=== PATIENT | female | born 1985 | race Hispanic/Latino ===

== ENCOUNTER 2018-09-24 09:28 | Emergency (ER) | payer SELFPAY ==
--- NOTE | 2018-09-24 12:58 | OBHP ---
Datetime: 09/24/2018 11:19 IP Adm Impression: , intrauterine IP Admit Plan: Observation/Evaluation; Discharge home Admit Comment, IP Provider: 32-year-old at 24.4 weeks twin (dated on Tri U/S, diamniotic, unknown chorionic as per patient) presents for lower abdominal pain 2 hours prior to pres entation. Pain is bilateral RLQ and LLQ and also lower back, made worse by standing and walking, reli eved with sitting/rest. Her first two pregnancies (in [place]) resulted in C/S @ 40 weeks. Next appoint ment with primary OBGYN is Oct 03 (8 days from presentation). Denies any problems with pregn dilcia thus far, patient of Dr Wallace in [place]. OBGYN: Dr Wallace, [place] PMH: denies OBHx: 2x C/S 2011, 2013 - no complications. 1st and only U/S for this @ 6weeks, next Oct 03 (8 days from presentation) Meds: denies Social: denies Allergies: NKA Family Hx: denies Labs: wnl as per patient, no records available ROS: all other systems reviewed and negative unless otherwise noted in HPI PE: comfortably lying in bed, in no acute distress CV: RRR Resp: no respiratory distress Abd: IUP, mild tenderness to palpation LLQ, LRQ Extremities: no edema A+P: Addendum by Dr. Gonzalez: I have evaluated the patient independently and I agree with the above Pelvic Type - PN: Not Done Extremities - PN: Normal Abdomen - PN: Normal Back - PN: Normal Breast - PN: Not Done Lungs - PN: Normal Heart - PN: Not Done Thyroid - PN: Not Done Neurologic - PN: Normal HEENT - PN: Normal General - PN: Normal EGA AdmitDate IP: 24.5 Vital Signs Provider: Reviewed; Within Normal Limits IP Chief Complaint: Maternal discomfort Genitourinary Exam: Not Done DTRs - PN: Not Done
--- NOTE | 2018-09-24 13:05 | OBDCSUM ---
Datetime: 09/24/2018 10:50 Discharged to, Provider: Home Follow up at, Provider: [facility]- Disch Instr Activity: Normal activity Disch Instr Diet: Regular Discharge Instructions, Provider: Routine instructions given Discharge Time: 09/24/2018 11:00 Follow up in weeks, Provider: as scheduled 10/03/2018 Disch Referrals: None Contraception discussed, Prov: Yes Discharge Diagnosis Prov Other: pelvic pain affecting
[2018-09-24 15:49] VITALS: BP 116/83; PULSE 104; RESP 18; TEMP 98.5; O2SAT 99
== END 2018-09-24 11:00 | disposition home or self-care (01) ==
LOC: H.EROB2 09:28
DX: O26.92 Pregnancy related conditions, unspecified, second trimester (principal); R10.2 Pelvic and perineal pain; O30.032 Twin pregnancy, monochorionic/diamniotic, second trimester; Z3A.24 24 weeks gestation of pregnancy

== ENCOUNTER 2018-12-09 11:22 | Emergency (ER) | payer MEDICAID, SELFPAY ==
[2018-12-09 12:12] VITALS: BMI 40.3
[2018-12-09] MEDS ORDERED: Lactated Ringer's 1,000 ML IV SCH ×2 (12:15)
[2018-12-09 13:03] LABS: BASO % 0.4 % (0.0-2.0); EOS # 0.1 K/uL (0.0-0.7); EOS % 0.8 % (0.0-4.0); HEMOGLOBIN 9.2 g/dL (12.0-16.0); LYMPH # 2.1 K/uL (1.0-4.3); LYMPH % 26.3 % (20.0-40.0); MEAN CELL VOLUME 66.2 fl (81.0-99.0); MEAN CORPUSCULAR HEMOGLOBIN 20.8 pg (27.0-31.0); MEAN CORPUSCULAR HGB CONC 31.4 g/dL (33.0-37.0); MONO # 0.6 K/uL (0.0-0.8); MONO % 7.9 % (0.0-10.0); NEUT # 5.1 K/uL (1.8-7.0); NEUT % 64.6 % (50.0-75.0); NRBC % 0.2 % (0.0-0.0); RBC 4.42 Mil/uL (3.80-5.20); RED CELL DISTRIBUTION WIDTH 19.5 % (11.5-14.5); WHITE BLOOD COUNT 7.9 K/uL (4.8-10.8)
[2018-12-09 13:12] LABS: ALBUMIN 3.5 g/dL (3.5-5.0); ALT/SGPT 19 U/L (9-52); AST/SGOT 19 U/L (14-36); BLOOD UREA NITROGEN 8 mg/dl (7-17); CALCIUM 9.2 mg/dL (8.4-10.2); GFR NON-AFRICAN AMERICAN > 60; URIC ACID 5.1 mg/Dl (2.2-7.5)
[2018-12-09 13:13] LABS: SQUAMOUS EPITHIAL 3 /hpf (0-5); URINE AMORPHOUS SEDIMENT RARE /ul (<OCC); URINE BILIRUBIN NEGATIVE (NEGATIVE); URINE BLOOD NEGATIVE (NEGATIVE); URINE CLARITY SLIGHTY-CLOUDY (Clear); URINE COLOR YELLOW (YELLOW); URINE GLUCOSE (UA) NEG (NEGATIVE); URINE LEUKOCYTE ESTERASE TRACE Leu/uL (Negative); URINE PROTEIN NEGATIVE (NEGATIVE); URINE UROBILINOGEN 0.2-1.0 mg/dL (0.2-1.0)
--- NOTE | 2018-12-09 16:47 | US ---
Date of service: 12/09/2018 PROCEDURE: ultrasound HISTORY: BPP/ Growth DC/DA twins COMPARISON: None TECHNIQUE: Standard protocol for this study/examination. FINDINGS: FETUS A: BREECH presentation. FUNDAL placenta. No evidence of abruption or previa Gestational age derived from LMP 35 WEEKS 4 DAYS. NORA 01/09/2019 Gestational age derived from the following biometric parameters 35 WEEKS 4 DAYS. NORA 01/09/2019 Biparietal diameter 8.82 cm Head circumference 31.41 cm Abdominal circumference 30.33 cm Femur length 7.18 cm Estimated weight 2621 g Calculated cardiac rate 131 beats per min. Biophysical profile Biophysical profile score 8/8 Based on the followin. breathing movements: 2/2 2. Gross body movement: 2/2 3. tone: 2/2 4. Qualitative amniotic fluid index: 2/2 FETUS B Cephalic presentation. Anterior placenta. No evidence of abruption or previa Gestational age derived from LMP 35 weeks 4 days. NORA 01/09/2019. Gestational age derived from the following biometric parameters 35 weeks 3 days. NORA 01/10/2019. Biparietal diameter 8.99 cm Head circumference 32.15 cm Abdominal circumference 29.62 cm Femur length 6.92 cm Estimated weight 2492 g Calculated cardiac rate 133 beats per min. Biophysical profile Biophysical profile score 8/8 Based on the followin. breathing movements: 2/2 2. Gross body movement: 2/2 3. tone: 2/2 4. Qualitative amniotic fluid index: 2/2 Closed cervix measuring 5.89 cm IMPRESSION: 1. Twin, live intrauterine gestations. Gestational concordance documented for fetus a and fetus B.. 2. Biophysical profile score baby A: 03/13 3. Biophysical profile score baby B: 03/13
--- NOTE | 2018-12-09 17:02 | OBHP ---
Datetime: 12/09/2018 12:33 IP Adm Impression: , intrauterine IP Admit Plan: Observation/Evaluation Admit Comment, IP Provider: 33 y/o , 35.4 wks, twin with NORA 01/09/19 and schedulaed CS date of 12/26/18 presents to [facility] complaining of abdominal pain and back pain started yesterday 4PM. P ain and CTx are intermittent every 15 mins, have increased in intensity since 4 am today. with assoic iated back pain, vomiting x 1 this monring, intermittent headache, and dizziness this morning. Denies LOF, VB, urinary complains, CP, SOB. Endorses good FM. Denies any H/O HTN in this . Prior M FM visit on 12/05/18. OBGYN: In [place], [place] PMH: Denies PSHx: 2 x CS, Appendectomy and Hemorrhoidectomy OBHx: G1: C/S 2011, Decels at 40 wks G2: C/S 2013 - no complications. Last US 12/05/18, Next US on 12/10/18 Meds: PNVs Social: denies Allergies: NKA Family Hx: denies Labs: wnl as per patient, no records available ROS: all other systems reviewed and negative unless otherwise noted in HPI Vitals: BP 137/78, WNL otherwise PE: Mild distress CV: RRR Resp: no respiratory distress Abd: mild tenderness to palpation lower abdomen, No CVA Extremities:+1 edema B/L SVE: Cervix close, (done by Dr. Gonzalez) Neuro: AAO x 3, CN 2-12 intact A_P: 33 y/o , 35.4 wks, twin with NORA 01/09/19 and schedulaed CS date of 12/26/18 prese nts to [facility] complaining of abdominal pain and back pain. - FHR: Twin A, Reactive, Category I, 120, Moderate variability, No decels Twin B, Reactive, Category I, 120, Moderate variability, No decels - [place]: No CTx - Preeclampsia labs orderd: CBC, CMP, UA, LDH, Uric Acid - LR 1L bolus followed by LR 1L @ 125 ml/hr - HgB 9.2, CMP unremarkable, Glucose 76, 3 hr OGTT results reviewed were unremarkable, LDH, uric a judie and UA unremarkable. - BPP with growth done showed BPP 8/8 for Twin A and Twin B. - Tylenol 650 mg once for back pain - PTL precautions reviewed with patient, advised patient to bed rest, maintain hydration, and retu rn if vaginal bleeding, LOF, CTx or decreased movements. Patient and verbalized underst anding. - Patient advised to take Tylenol PRN for back pain and F/U with provider. - Continue weekly BPP and F/U with MFM, however 12/10/18 US with BPP not required since patient had US with BPP and growth done today 12/09/18. Case seen and discussed with Dr. Carlos Ross MD, PGY1 Addendum by Dr. Gonzalez: I have evaluated the patient independently and I agree with the above FHR - Baseline A Provider: 120 Contraction Comments Provider: None Comments, ACOG Physical Exam: Vitals: BP 137/78, WNL otherwise PE: Mild distress CV: RRR Resp: no respiratory distress Abd: mild tenderness to palpation lower abdomen Back: Lumbar paraspinal tenderness + B/L, No CVA tenderness Extremities:+1 edema B/L Neuro: AAO x 3, CN 2-12 intact SVE: Done by Dr. Gonzalez, cervix close. EGA AdmitDate IP: 35.4 Vital Signs Provider: Reviewed; Within Normal Limits IP Chief Complaint: Uterine contractions; Maternal discomfort NICHD Variability Prov Fetus A: Moderate 6-25bpm NICHD Accel Fetus A IP Provider: 15X15 FHR Category Provider Fetus A: Category I NICHD Decel Fetus A IP Provider: None Dilatation, Provider: 0
--- NOTE | 2018-12-09 17:05 | OBDCSUM ---
Datetime: 12/09/2018 16:23 Discharged to, Provider: Home Follow up at, Provider: [facility] Disch Instr Activity: Normal activity Disch Instr Diet: Regular Discharge Diagnosis, Provider: False Labor - Undelivered Discharge Time: 12/09/2018 16:23 Follow up in weeks, Provider: 12/16/2018 Disch Referrals: None
[2018-12-09 21:37] VITALS: BP 102/47; PULSE 81; RESP 18; TEMP 97.8; O2SAT 100
== END 2018-12-09 16:42 | disposition home or self-care (01) ==
LOC: H.EROB2 11:22
DX: O26.93 Pregnancy related conditions, unspecified, third trimester (principal); R10.2 Pelvic and perineal pain; M54.9 Dorsalgia, unspecified; Z3A.35 35 weeks gestation of pregnancy; O21.0 Mild hyperemesis gravidarum; R42 Dizziness and giddiness; R51 Headache
CPT/HCPCS: 76815; 80053; 81003; 83615; 84550; 85025; 96360; 99284; J7120

== ENCOUNTER 2018-12-17 12:16 | Emergency (ER) | payer MEDICAID ==
[2018-12-17 21:27] VITALS: BP 128/82; PULSE 103; RESP 18; TEMP 98.4
--- NOTE | 2018-12-18 08:34 | OBDCSUM ---
Datetime: 12/17/2018 13:07 Discharge Diagnosis, Provider: False Labor - Undelivered
--- NOTE | 2018-12-18 08:35 | OBHP ---
Datetime: 12/17/2018 12:37 IP Adm Impression: , intrauterine ; No Active Labor; Intact Membranes IP Admit Plan: Observation/Evaluation; Discharge home Admit Comment, IP Provider: 33 y/o , 36.5 wks, twin with NORA 01/09/19 and schedulaed CS date of 12/26/18 sent to ED by [facility] due to recurrent decels today during NST. Patient had US and NST to day which showed recurrent variables in Twin A. Patient reports CTx lasting 40 sec started earlier th is morning, LOF with small amount of clear watery liquid. Denies VB, urinary complains, CP, SOB. Repo rts decreased FM in twin a since this morning. Denies any H/O HTN in this . care: [facility]. Last [facility] visit today. Last labs 12/09/18: HgB 9.2, CMP unremarkable, Glucose 76, 3 hr OGTT results reviewed were unremarka ble, LDH, uric acid and UA unremarkable. PMH: Denies PSHx: 2 x CS, Appendectomy and Hemorrhoidectomy OBHx: G1: C/S 2011, Decels at 40 wks, Oligohydroamnios G2: C/S 2013 - no complications. Last US 12/17/18 Meds: PNVs Social: denies Allergies: NKA Family Hx: denies Labs: wnl as per patient, no records available ROS: all other systems reviewed and negative unless otherwise noted in HPI Vitals: VSS PE: NAD CV: RRR, S1S2 present Resp: no respiratory distress Abd: Gravid, NT, ND SSE: No active vaginal bleeding, Pooling and ferning negative SVE: Close, thick and high Extremities:Trace edema B/L Neuro: AAO x 3 A/P: 33 y/o , 36.5 wks, twin with NORA 01/09/19 and schedulaed CS date of 12/26/18 sent to ED by [facility] due to recurrent decels today during NST. Patient inOBED for evaluation and R/O RO M. - NST reactive, for Twin A and Twin B - US report reviewed from today which shows BPP 10/10 for both twin A and twin B - Ferning and Pooling test negative - No CTx on toco - Cervix close, high - Will schedule patient for C section on 12/24/18 - Follow up with [facility] tomorrow for check up - PTL precautions reviewed with patient, advised patient to bed rest, maintain hydration, and retu rn if vaginal bleeding, LOF, CTx or decreased movements. Patient verbalized understanding. Case seen and discussed with Dr. Sarah Ross MD, PGY1 OB Hospitalist note. With PGY1, I saw and examined this patinet. She had reactive NST for both baby A and B. +FM. BPP 8/8 for both and SMITH adeq as per MFM report. SSE: closed FERN neg - labor i nstructions. Pt originally scheduled for Thurs...offered to schedule her earlier at 38w. MAHNDO Pelvic Type - PN: Adequate Extremities - PN: Normal Abdomen - PN: Normal Back - PN: Normal Breast - PN: Not Done Lungs - PN: Normal Heart - PN: Normal Thyroid - PN: Not Done Neurologic - PN: Not Done HEENT - PN: Normal General - PN: Normal FHR - Baseline A Provider: 120-130s Membranes, Provider: Intact Contraction Comments Provider: absent Comments, ACOG Physical Exam: PE: NAD CV: RRR, S1S2 present Resp: no respiratory distress Abd: Gravid, NT, ND SSE: No active vaginal bleeding, Pooling and ferning negative SVE: Close, thick and high Extremities:Trace edema B/L Neuro: AAO x 3 Pool Provider: Negative Ferning Provider: Negative EGA AdmitDate IP: 36.5 Vital Signs Provider: Reviewed; Within Normal Limits IP Chief Complaint: evaluation NICHD Variability Prov Fetus A: Moderate 6-25bpm NICHD Accel Fetus A IP Provider: 15X15 FHR Category Provider Fetus A: Category I NICHD Decel Fetus A IP Provider: None Dilatation, Provider: 0 Genitourinary Exam: Normal DTRs - PN: Not Done
== END 2018-12-17 13:15 | disposition home or self-care (01) ==
LOC: H.EROB2 12:16
DX: O26.93 Pregnancy related conditions, unspecified, third trimester (principal); R10.2 Pelvic and perineal pain; O09.93 Supervision of high risk pregnancy, unspecified, third trimester; Z3A.36 36 weeks gestation of pregnancy

== ENCOUNTER 2018-12-22 01:17 | Emergency (ER) | payer MEDICAID ==
[2018-12-22 01:38] VITALS: BMI 41.3
[2018-12-22] MEDS ORDERED: Lactated Ringer's 1,000 ML IV SCH (02:30)
[2018-12-22 02:54] LABS: BASO % 0.4 % (0.0-2.0); EOS # 0.1 K/uL (0.0-0.7); EOS % 1.4 % (0.0-4.0); HEMOGLOBIN 7.9 g/dL (12.0-16.0); LYMPH # 2.2 K/uL (1.0-4.3); LYMPH % 30.2 % (20.0-40.0); MEAN CELL VOLUME 65.2 fl (81.0-99.0); MEAN CORPUSCULAR HEMOGLOBIN 20.4 pg (27.0-31.0); MEAN CORPUSCULAR HGB CONC 31.3 g/dL (33.0-37.0); MEAN PLATELET VOLUME 8.9 fl (7.2-11.7); MONO # 0.7 K/uL (0.0-0.8); NEUT # 4.3 K/uL (1.8-7.0); NRBC % 0.3 % (0.0-0.0); RBC 3.88 Mil/uL (3.80-5.20); WHITE BLOOD COUNT 7.4 K/uL (4.8-10.8)
[2018-12-22 03:17] LABS: ALBUMIN 3.4 g/dL (3.5-5.0); ALT/SGPT 15 U/L (9-52); AST/SGOT 31 U/L (14-36); BLOOD UREA NITROGEN 8 mg/dl (7-17); CALCIUM 8.6 mg/dL (8.4-10.2); GFR NON-AFRICAN AMERICAN > 60
[2018-12-22 03:35] LABS: PROTHROMBIN TIME 11.2 Seconds (9.8-13.1)
[2018-12-22 03:37] LABS: PARTIAL THROMBOPLASTIN TIME 25.4 Seconds (25.6-37.1)
[2018-12-22 06:02] LABS: SQUAMOUS EPITHIAL 3 /hpf (0-5); URINE BACTERIA RARE (<OCC); URINE BILIRUBIN NEGATIVE (NEGATIVE); URINE BLOOD NEGATIVE (NEGATIVE); URINE CLARITY SLIGHTY-CLOUDY (Clear); URINE COLOR YELLOW (YELLOW); URINE GLUCOSE (UA) NEG (NEGATIVE); URINE LEUKOCYTE ESTERASE NEG Leu/uL (Negative); URINE PROTEIN 30 mg/dL (NEGATIVE); URINE UROBILINOGEN 0.2-1.0 mg/dL (0.2-1.0)
--- NOTE | 2018-12-22 11:29 | OBHP ---
Datetime: 12/22/2018 10:46 IP Adm Impression: Term, intrauterine ; No Active Labor; Intact Membranes IP Admit Plan: Observation/Evaluation; Discharge home Admit Comment, IP Provider: 33-year-old at 37 weeks and 3 days gestational age with twin gestation p resents complaining of cramping and contractions. Patient denies any vaginal bleeding or leakage of fluids. Patient reports good movement. Patient scheduled for repeat in 2 days. Oth erwise, patient without complaints. Past medical history denies Past surgical history x2 Medications vitamins No known drug allergies Social history denies tobacco, drugs, alcohol Assessment: 37 weeks and 3 days twin gestation, no evidence of labor at this time, all labs within normal limi ts, heart tracing category 1 2. Plan: Patient was observed at OB ED. Plan to discharge patient home with labor precautions. Patient sc heduled for on 12/24/2018. Patient given labor precautions and preoperative instructions. All patient questions answered. Pelvic Type - PN: Adequate Extremities - PN: Normal Abdomen - PN: Normal Back - PN: Normal Breast - PN: Normal Lungs - PN: Normal Heart - PN: Normal Thyroid - PN: Normal Neurologic - PN: Normal HEENT - PN: Normal General - PN: Normal FHR - Baseline A Provider: 120s-130s (x2) Contraction Comments Provider: none EGA AdmitDate IP: 37.3 Vital Signs Provider: Reviewed; Within Normal Limits IP Chief Complaint: Uterine contractions; Maternal discomfort NICHD Variability Prov Fetus A: Moderate 6-25bpm NICHD Accel Fetus A IP Provider: 15X15 FHR Category Provider Fetus A: Category I NICHD Decel Fetus A IP Provider: None Dilatation, Provider: 0 Effacement, Provider: 0 Station, Provider: -4 Genitourinary Exam: Normal DTRs - PN: Normal
[2018-12-22 15:27] VITALS: BP 139/88; PULSE 96; RESP 20; TEMP 98; O2SAT 100
== END 2018-12-22 08:40 | disposition home or self-care (01) ==
LOC: H.EROB2 01:17
DX: O26.93 Pregnancy related conditions, unspecified, third trimester (principal); R10.2 Pelvic and perineal pain; O30.003 Twin pregnancy, unspecified number of placenta and unspecified number of amniotic sacs, third trimester; Z3A.37 37 weeks gestation of pregnancy
CPT/HCPCS: 80053; 81003; 83615; 85025; 85384; 85610; 85730; 86850; 86900; 99283; J7120

== ENCOUNTER 2018-12-24 05:51 | Inpatient (IN) | payer MEDICAID ==
[2018-12-24] MEDS: Lactated Ringer's 1,000 ML IV ONE ×2 (06:30→07:40)
[2018-12-24 06:50] VITALS: BMI 44.1
[2018-12-24] MEDS ORDERED: ceFAZolin 2 GM in Sodium Chloride 0.9% 100 ML IVPB ONE (06:50)
[2018-12-24] MEDS ORDERED: Oxytocin 30 UNIT in NS 500 ml 30 UNITS/500 ML BAG IV ONE (06:53)
[2018-12-24] MEDS ORDERED: OXYTOCIN/0.9 % NS 20 UNIT/1,000 ML BAG IV SCH (07:00)
[2018-12-24 07:46] LABS: BASO # 0.1 K/uL (0.0-0.2); BASO % 0.7 % (0.0-2.0); EOS # 0.1 K/uL (0.0-0.7); EOS % 1.2 % (0.0-4.0); HEMOGLOBIN 8.6 g/dL (12.0-16.0); LYMPH # 2.4 K/uL (1.0-4.3); LYMPH % 30.1 % (20.0-40.0); MEAN CELL VOLUME 65.5 fl (81.0-99.0); MEAN CORPUSCULAR HGB CONC 30.6 g/dL (33.0-37.0); MONO # 0.6 K/uL (0.0-0.8); MONO % 8.2 % (0.0-10.0); NEUT # 4.7 K/uL (1.8-7.0); NEUT % 59.8 % (50.0-75.0); NRBC % 0.2 % (0.0-0.0); RBC 4.28 Mil/uL (3.80-5.20); RED CELL DISTRIBUTION WIDTH 20.1 % (11.5-14.5); WHITE BLOOD COUNT 7.8 K/uL (4.8-10.8)
--- NOTE | 2018-12-24 10:15 | OBADHP ---
Datetime: 12/24/2018 06:43 Admit Comment, IP Provider: 33 y/o , 37.5 wks, twin with NORA 01/09/19 presents for sched uled C section. Patient reports irregular CTx, reports good movements. Denies VB, LOF urinary c omplains, CP, SOB. Denies any H/O HTN in this . Patient is getting weekly NST and BPP with l ast US on 12/17/18. care: [facility], [place]. PMH: Denies PSHx: 2 x CS, Appendectomy and Hemorrhoidectomy OBHx: G1: C/S 2011, Decels at 40 wks, Oligohydroamnios G2: C/S 2013 - no complications. Last US 12/17/18 Meds: PNVs Social: denies Allergies: NKA Family Hx: denies Labs: wnl as per patient, no records available ROS: all other systems reviewed and negative unless otherwise noted in HPI Vitals: VSS PE: NAD CV: RRR, S1S2 present Resp: no respiratory distress Abd: Gravid, NT, ND Extremities:Trace edema B/L Neuro: AAO x 3 A/P: 33 y/o , 37.5 wks, twin with NORA 01/09/19 admitted for scheduled - NST reactive, for Twin A and Twin B - GBS Unknown, HIV NR, RPR NR, Rubella immune - No CTx on toco - Cervix close, high - CBC, T_S - LR 1L 999 and 125 ml/hr - ANesthesia consult - Ancef 2 gm IVPB - NPO since midnight Case seen and discussed with Dr. Carlos Ross MD, PGY1 OB hospitalist on-call. After discussion with patient about conditoin, procedure (C/S and BTL), r isks/complications, she stated that she understood. Her questoins answered. Informed consents obtai palak. Hb 8 - will obtain type and cross/additional IV line Pelvic Type - PN: Not Done Extremities - PN: Normal Abdomen - PN: Normal Back - PN: Normal Breast - PN: Not Done Lungs - PN: Normal Heart - PN: Normal Thyroid - PN: Not Done Neurologic - PN: Normal HEENT - PN: Normal General - PN: Normal FHR - Baseline A Provider: 120 IP Hx Assessment: The History has been Reviewed and is Current Vital Signs Provider: Reviewed IP Chief Complaint: Scheduled Section NICHD Variability Prov Fetus A: Moderate 6-25bpm NICHD Accel Fetus A IP Provider: 15X15 FHR Category Provider Fetus A: Category I NICHD Decel Fetus A IP Provider: None Genitourinary Exam: Normal DTRs - PN: Not Done EGA AdmitDate IP: 37.5 IP Adm Impression: Term, intrauterine ; No Active Labor; Intact Membranes IP Admit Plan: Initiate Section protocol Datetime: 12/22/2018 10:46 Contraction Comments Provider: none Dilatation, Provider: 0 Effacement, Provider: 0 Station, Provider: -4 Datetime: 12/17/2018 12:37 Membranes, Provider: Intact Comments, ACOG Physical Exam: PE: NAD CV: RRR, S1S2 present Resp: no respiratory distress Abd: Gravid, NT, ND SSE: No active vaginal bleeding, Pooling and ferning negative SVE: Close, thick and high Extremities:Trace edema B/L Neuro: AAO x 3 Pool Provider: Negative Ferning Provider: Negative
[2018-12-24] MEDS ORDERED: Absorbable Gelatin Sponge Size 12-7 ONE (13:15)
[2018-12-24] MEDS ORDERED: Lidocaine 2% PF (10 ml) Amp ONE (13:39)
[2018-12-24] MEDS ORDERED: Lidocaine 2% Jelly (5 ml) TOP ONE (13:39)
[2018-12-24] MEDS ORDERED: Oxycodone/Acetaminophen 5/325 mg Tab PO PRN ×4 (13:51→16:52)
[2018-12-24] MEDS ORDERED: Bupivacaine 0.25% 300 ML in Sodium Chloride 0.9% 300 ML IS ONE (14:01)
[2018-12-24] MEDS ORDERED: Simethicone 80 mg Chewtab PO SCH (16:00)
[2018-12-24] MEDS: Simethicone 80 mg Chewtab PO SCH (22:15)
[2018-12-25 05:43] LABS: HEMOGLOBIN 8.6 g/dL (12.0-16.0); MEAN CELL VOLUME 66.2 fl (81.0-99.0); MEAN CORPUSCULAR HEMOGLOBIN 19.8 pg (27.0-31.0); MEAN CORPUSCULAR HGB CONC 29.9 g/dL (33.0-37.0); RBC 4.34 Mil/uL (3.80-5.20); RED CELL DISTRIBUTION WIDTH 20.1 % (11.5-14.5); WHITE BLOOD COUNT 11.3 K/uL (4.8-10.8)
[2018-12-25] MEDS: Simethicone 80 mg Chewtab PO SCH ×4 (06:11→22:08)
--- NOTE | 2018-12-25 07:15 | OBDS ---
DELIVERY PERSONNEL Delivery Doctor: Kermit Smith DO Scrub Nurse: Margarita Flores OBT It Application Support Analyst: Jaspal Peterson RN / Deborah Tan RN Anesthesiologist: Dr. Cardenas Resident: Rahul Whitehead MATERNAL INFORMATION Delivery Anesthesia: Spinal Medications in Delivery: Ancef 2g; Lactated Ringers; pitocin Estimated Blood Loss (ml): 800 Placenta Cultured: No Maternal Complications: None Provider Comments: Pre Op Dx: IUP 38w / twin preg / previous C/S x 2 / [facility] (desiring voluntar y sterilization) Post op DX: same Procedure: Repeat LTCS via previous surgical scar Surgeon: Dr Smith Assts: Dr Kristian Gomes and Dr Natalie Cabrera PGY1 Anesth: Dr Cardenas Anest: spinal Findings: - Thin lower segment/Clear AF in both sacs - delivery of baby A breech / baby B cephalic - both babies cried spontaneously/[id number] - Placenta delivered intact manually - Ovaries and tubes WNL - Bilateral fibriectomy performed -Gel foam placed in lower uterine segment - EBL 800cc - She remained stable during procedure - all equipment sponges and needles accounted for LABOR SUMMARY EDC: 01/09/2019 00:00 No. Babies in Womb: 2 Attempted: No Labor Anesthesia: Intrathecal LABOR INFORMATION Reason for Induction: Not Applicable Oxytocin: N/A Group B Beta Strep: Done, Result Unknown Antibiotics # of Doses: 0 Antibiotics Time of Last Dose: n/a (Annotations: Data stored by CPN on behalf of user) Steroids Given: None Reason Steroids Not Administered: Not Applicable MEMBRANES Membranes Rupture Method: Artificial (Annotations: Data stored by CPN on behalf of user) Rupture of Membranes: 12/24/2018 12:54 Length of Rupture (hrs): 0.00 Amniotic Fluid Color: Clear Amniotic Fluid Amount: Moderate Amniotic Fluid Odor: None STAGES OF LABOR Stage 3 hrs: 0 Stage 3 min: 4 CSECTION DELIVERY Primary Indication: Repeat Elective CSection Urgency: Elective CSection Incidence: Repeat Labor: No Labor Elective: Elective CSection Incision: Lower Uterine Transverse Other Sterilization Procedure: Bilateral fibriectomy Uterine Closure: Double-layer closure BABY A INFORMATION Delivery Date/Time: 12/24/2018 12:54 Method of Delivery: Born in Route : No : N/A Forceps: N/A Vacuum Extraction: N/A Shoulder Dystocia : No SHOULDER DYSTOCIA BABY A Delivery Date/Time: 12/24/2018 12:54 PRESENTATION/POSITION BABY A Presentation: Breech Cephalic Presentation: N/A Breech Presentation: Sourav PLACENTA INFORMATION BABY A Placenta Delivery Time : 12/24/2018 12:58 Placenta Method of Delivery: Manual Removal Placenta Status: Delivered SCORES BABY A Heart Rate 1 min: >100 bpm Resp Effort 1 min: Good Cry Reflex Irritability 1 min: Cough or Sneeze or Pulls Away Muscle Tone 1 min: Active Motion Color 1 min: Body Twin Brooks, Extremities Blue Resuscitation Effort 1 min: Tactile Stimulation SCORE 1 MIN: 9 Heart Rate 5 min: >100 bpm Resp Effort 5 min: Good Cry Reflex Irritability 5 min: Cough or Sneeze or Pulls Away Muscle Tone 5 min: Active Motion Color 5 min: Body Twin [place], Extremities Blue Resuscitation Effort 5 min: Tactile Stimulation SCORE 5 MIN: 9 INFANT INFORMATION BABY A Gestational Age at Delivery: 37.5 Gestational Status: Term Infant Outcome : Liveborn Infant Condition : Stable Infant Sex: Male IDENTIFICATION/MEDS BABY A ID Band Number: [id number] ID Band Location: Left Leg; Left Arm WEIGHT/LENGTH BABY A Infant Birthweight (gms): 3050 Infant Weight (lb): 6 Infant Weight (oz): 12 CORD INFORMATION BABY A No. Cord Vessels: 3 Nuchal Cord : N/A Cord Blood Taken: Yes Infant Suction: Mouth; Nose ASSESSMENT BABY A Complications: None Physical Findings at Delivery: Within Normal Limits Infant Respirations: Appears Normal Maintenance Aide/ALS Called : No Infant Care By: Deborah Reyna RN Transferred To: [facility] BABY B INFORMATION Delivery Date/Time: 12/24/2018 12:55 Method of Delivery : Born in Route : No : N/A Forceps : N/A Vacuum Extraction: N/A Shoulder Dystocia : No SHOULDER DYSTOCIA BABY B Delivery Date/Time: 12/24/2018 12:55 PRESENTATION/POSITION BABY B Presentation : Cephalic Cephalic Position : Vertex Breech Position: N/A ROM/PLACENTA INFO BABY B Rupture of Membranes: 12/24/2018 12:54 Length of Rupture (hrs): 0.02 Placenta Delivery Time : 12/24/2018 12:58 Placenta Method of Delivery: Manual Removal Placental Status : Delivered SCORES BABY B Heart Rate 1 min: >100 bpm Resp Effort 1 min: Slow, Irregular Reflex Irritability 1 min: Cough or Sneeze or Pulls Away Muscle Tone 1 min: Active Motion Color 1 min: Body [place], Extremities Blue Resuscitation Effort 1 min: Tactile Stimulation SCORE 1 MIN: 8 Heart Rate 5 min: >100 bpm Resp Effort 5 min: Good Cry Reflex Irritability 5 min: Cough or Sneeze or Pulls Away Muscle Tone 5 min: Active Motion Color 5 min: Body Twin [place], Extremities Blue Resuscitation Effort 5 min: Tactile Stimulation SCORE 5 MIN: 9 INFANT INFORMATION BABY B Gestational Age at Delivery: 37.5 Gestational Status : Term Infant Outcome : Liveborn Condition : Stable Infant Sex : Female IDENTIFICATION/MEDS BABY B ID Band Number : [id number] ID Band Location : Left Leg; Left Arm WEIGHT/LENGTH BABY B Infant Birthweight (gms): 3010 Weight (lb) : 6 Weight (oz): 10 CORD INFORMATION BABY B No. Cord Vessels : 3 Nuchal Cord : N/A Cord Blood Taken : Yes Suction : Mouth; Nose ASSESSMENT BABY B Infant Complications : None Physical Findings at Delivery: Within Normal Limits Infant Respirations : Appears Normal Maintenance Aide/ALS Called : No Care By : Deborah Reyna RN Transfer To: Nursery
--- NOTE | 2018-12-25 07:15 | OBDS ---
DELIVERY PERSONNEL Delivery Doctor: Kermit Smith DO Scrub Nurse: Margarita Flores [employer] Credit Card Collection Clerk: Jaspal Peterson RN / Deborah Tan RN Anesthesiologist: Dr. Cardenas Resident: Rahul Whitehead MATERNAL INFORMATION Delivery Anesthesia: Spinal Medications in Delivery: Ancef 2g; Lactated Ringers; pitocin Estimated Blood Loss (ml): 800 Placenta Cultured: No Maternal Complications: None Provider Comments: Pre Op Dx: IUP 38w / twin preg / previous C/S x 2 / Multparity (desiring voluntar y sterilization) Post op DX: same Procedure: Repeat LTCS via previous surgical scar Surgeon: Dr Smith Assts: Dr Kristian Gomes and Dr Natalie Cabrera PGY1 Anesth: Dr Cardenas Anest: spinal Findings: - Thin lower segment/Clear AF in both sacs - delivery of baby A breech / baby B cephalic - both babies cried spontaneously/[id number] - Placenta delivered intact manually - Ovaries and tubes WNL - Bilateral fibriectomy performed -Gel foam placed in lower uterine segment - EBL 800cc - She remained stable during procedure - all equipment sponges and needles accounted for LABOR SUMMARY EDC: 01/09/2019 00:00 EDC: 01/09/2019 00:00 EDC: 01/09/2019 00:00 No. Babies in Womb: 2 Attempted: No Labor Anesthesia: Intrathecal LABOR INFORMATION Reason for Induction: Not Applicable Oxytocin: N/A Group B Beta Strep: Done, Result Unknown Antibiotics # of Doses: 0 Antibiotics Time of Last Dose: n/a (Annotations: Data stored by CPN on behalf of user) Steroids Given: None Reason Steroids Not Administered: Not Applicable MEMBRANES Membranes Rupture Method: Artificial (Annotations: Data stored by N on behalf of user) Rupture of Membranes: 12/24/2018 12:54 Length of Rupture (hrs): 0.00 Amniotic Fluid Color: Clear Amniotic Fluid Amount: Moderate Amniotic Fluid Odor: None STAGES OF LABOR Stage 3 hrs: 0 Stage 3 min: 4 CSECTION DELIVERY Primary Indication: Repeat Elective CSection Urgency: Elective CSection Incidence: Repeat Labor: No Labor Elective: Elective CSection Incision: Lower Uterine Transverse Other Sterilization Procedure: Bilateral fibriectomy Uterine Closure: Double-layer closure BABY A INFORMATION Infant Delivery Date/Time: 12/24/2018 12:54 Method of Delivery: Born in Route : No : N/A Forceps: N/A Vacuum Extraction: N/A Shoulder Dystocia : No SHOULDER DYSTOCIA BABY A Delivery Date/Time: 12/24/2018 12:54 PRESENTATION/POSITION BABY A Presentation: Breech Cephalic Presentation: N/A Breech Presentation: Sourav PLACENTA INFORMATION BABY A Placenta Delivery Time : 12/24/2018 12:58 Placenta Method of Delivery: Manual Removal Placenta Status: Delivered SCORES BABY A Heart Rate 1 min: >100 bpm Resp Effort 1 min: Good Cry Reflex Irritability 1 min: Cough or Sneeze or Pulls Away Muscle Tone 1 min: Active Motion Color 1 min: Body Laird, Extremities Blue Resuscitation Effort 1 min: Tactile Stimulation SCORE 1 MIN: 9 Heart Rate 5 min: >100 bpm Resp Effort 5 min: Good Cry Reflex Irritability 5 min: Cough or Sneeze or Pulls Away Muscle Tone 5 min: Active Motion Color 5 min: Body Laird, Extremities Blue Resuscitation Effort 5 min: Tactile Stimulation SCORE 5 MIN: 9 INFANT INFORMATION BABY A Gestational Age at Delivery: 37.5 Gestational Status: Term Infant Outcome : Liveborn Condition : Stable Sex: Male IDENTIFICATION/MEDS BABY A ID Band Number: [id number] ID Band Location: Left Leg; Left Arm WEIGHT/LENGTH BABY A Birthweight (gms): 3050 Weight (lb): 6 Weight (oz): 12 CORD INFORMATION BABY A No. Cord Vessels: 3 Nuchal Cord : N/A Cord Blood Taken: Yes Suction: Mouth; Nose ASSESSMENT BABY A Complications: None Physical Findings at Delivery: Within Normal Limits Respirations: Appears Normal Slot Shift Supervisor/ALS Called : No Infant Care By: Deborah Reyna RN Transferred To: Nursery BABY B INFORMATION Delivery Date/Time: 12/24/2018 12:55 Method of Delivery : Born in Route : No : N/A Forceps : N/A Vacuum Extraction: N/A Shoulder Dystocia : No SHOULDER DYSTOCIA BABY B Infant Delivery Date/Time: 12/24/2018 12:55 PRESENTATION/POSITION BABY B Presentation : Cephalic Cephalic Position : Vertex Breech Position: N/A ROM/PLACENTA INFO BABY B Rupture of Membranes: 12/24/2018 12:54 Length of Rupture (hrs): 0.02 Placenta Delivery Time : 12/24/2018 12:58 Placenta Method of Delivery: Manual Removal Placental Status : Delivered SCORES BABY B Heart Rate 1 min: >100 bpm Resp Effort 1 min: Slow, Irregular Reflex Irritability 1 min: Cough or Sneeze or Pulls Away Muscle Tone 1 min: Active Motion Color 1 min: Body Laird, Extremities Blue Resuscitation Effort 1 min: Tactile Stimulation SCORE 1 MIN: 8 Heart Rate 5 min: >100 bpm Resp Effort 5 min: Good Cry Reflex Irritability 5 min: Cough or Sneeze or Pulls Away Muscle Tone 5 min: Active Motion Color 5 min: Body Laird, Extremities Blue Resuscitation Effort 5 min: Tactile Stimulation SCORE 5 MIN: 9 INFANT INFORMATION BABY B Gestational Age at Delivery: 37.5 Gestational Status : Term Outcome : Liveborn Condition : Stable Infant Sex : Female IDENTIFICATION/MEDS BABY B ID Band Number : [id number] ID Band Location : Left Leg; Left Arm WEIGHT/LENGTH BABY B Infant Birthweight (gms): 3010 Infant Weight (lb) : 6 Weight (oz): 10 CORD INFORMATION BABY B No. Cord Vessels : 3 Nuchal Cord : N/A Cord Blood Taken : Yes Infant Suction : Mouth; Nose ASSESSMENT BABY B Infant Complications : None Physical Findings at Delivery: Within Normal Limits Infant Respirations : Appears Normal Slot Shift Supervisor/ALS Called : No Infant Care By : Deborah Reyna RN Transfer To: [facility]
[2018-12-25] MEDS: Multivitamin With Minerals Tab PO SCH (08:51)
[2018-12-25] MEDS ORDERED: Multivitamin With Minerals Tab PO SCH (09:00)
--- NOTE | 2018-12-25 09:36 | OBPPN ---
Datetime: 12/25/2018 06:16 PP Pain Prov: Within normal limits PP Nausea Prov: Denies PP Flatus Prov: Yes PP BM Prov: No PP Breasts Prov: Not Done PP Heart Prov: Normal PP Lungs Prov: Normal PP Abdomen/Uterus Prov: Normal PP Lochia Prov: Normal PP Vulva/Perineum Prov: Not Done PP CVA Tenderness Prov: Normal PP Extremities Prov: Normal PP C/S Incision Prov: Normal PP Progress Prov: Normal PP Impression Prov: Normal progression PP Plan Prov: Continue present management; consult PP Progress Note Prov: POD 1 S: 33-year-old , S/P Repeat C-sec on 12/24/18, on POD 1. No overnight events. Pain tolerate d with Ibuprofen. Had 8 episodes of vomiting yestrday for which patient received ZOfran. Deneis N/V n ow. Was NPO yestrday except for ice chips. WIll advance diet to liquid diet this morning. Denies feve r, chills, CP, SOB, headache, dizziness. Not Ambulating yet. Frost to be removed at 6 am today. Formu la feeding. Passing flatus, No BM yet. Dressing present. VS: stable GEN: NAD Cardio: S1S2, no murmurs Lungs: clear breath sounds b/l, no wheezing Abdomen: BS+, appropriate tenderness to palpation. Incision not visualized, dressing intact, clean and dry. Uterus is firm and at the level of the umbilicus. Appropriate tenderness. On Q ball present . EXT: Trace edema, calves non-tender NEURO/PSYCH: AAOx3, no grossly focal deficits, preserved affect and mood. Assessment/Plan: 33-year-old , S/P Repeat C-sec on 12/24/18, on POD 1, Pt remains afebrile, tolerating pain with medication. -Percocet 5/325mg q4 and Motrin 600mg po q6 for pain as per pain scale -Incentive spirometry Q1hr - Zofran 4mg Q6hr PRN for nausea/vomiting -Senakot 17.2mg po QHS -Mylicon 80mg PO Q6H -Encourage and ambulation Case discussed with attending -Matthew Ross PGY1 The patient was seen with the resident I agree with the note Vital Signs Provider PP: Reviewed; Within Normal Limits
[2018-12-26] MEDS: Simethicone 80 mg Chewtab PO SCH ×4 (05:02→21:54)
[2018-12-26] MEDS: Multivitamin With Minerals Tab PO SCH (08:44)
--- NOTE | 2018-12-26 08:52 | OP ---
PROCEDURE DATE: 12/24/2018 PREOPERATIVE DIAGNOSES: Intrauterine at 38 weeks' gestation, twin , previous section x2, multiparity, desiring voluntary sterilization. POSTOPERATIVE DIAGNOSES: Intrauterine at 38 weeks' gestation, twin , previous section x2, multiparity, desiring voluntary sterilization. PROCEDURES: Repeat low-transverse section via previous surgical scar. SURGEON: Jorge Smith DO ASSOCIATE JUVENILE COURT JUDGE: Felix Gomes MD SECOND ASSOCIATE JUVENILE COURT JUDGE: ALEX Gutierrez-1. ANESTHESIOLOGISTS: Dr. Cardenas. ANESTHESIA: Spinal. OPERATIVE FINDINGS: 1. Uterus had a very thin low uterine segment. Clear amniotic fluid was noted in both gestational sacs. 2. Delivery of baby A from a breech presentation, baby B was delivered cephalically. 3. Both babies cried spontaneously. score 9 and 9 given at 1 and 9 minutes respectively. 4. Placenta delivered intact manually. 5. Ovaries and tubes appeared to be within normal limits grossly. Bilateral fimbriectomy was performed without complications. Gelfoam was placed on the lower uterine segment. ESTIMATED BLOOD LOSS: 800 mL. She remained hemodynamically stable throughout the procedure. All equipments, sponges, and needles accounted for. DESCRIPTION OF PROCEDURE: The patient was brought to the operating room. After successful spinal anesthesia by Dr. Cardenas, she was placed in a supine position. Compression boots were placed on both lower extremities. Catheter was placed in the bladder and draining clear urine. She was draped and prepped in the usual sterile manner. Once adequate anesthesia was obtained, an incision was made using a scalpel through a previous surgical scar. This incision was then taken down to underlying fascia using electrocautery. Fascia was nicked in the midline and extended bilaterally using electrocautery. The inferior aspect of the fascia was grasped using 2 Emily clamps, tented up, and the rectus muscle was both bluntly and sharply dissected. The same was done with the superior aspect of the fascia. In the midline, superiorly the rectus muscle noted to be . Able to identify the peritoneum. This was entered bluntly. Once entering the peritoneal cavity, incision was then extended superiorly and inferiorly with direct visualization of the bladder and intestines. Two wet lap pads were placed in the pericolic gutters. A bladder blade was then inserted. Inspecting the uterus, lower uterine segment was noted to be very thin. We were able to actually identify parts through this window. Decision was made to perform a low transverse incision above this window, this was done using a scalpel. Bladder flap was created using Metzenbaum scissors. Incision was made. Incision was then extended bilaterally with bandage scissors. First infant's buttocks were identified and delivered through the incision. Remainder of the infant was then delivered as atraumatically as possible. Clear amniotic fluid was noted. was crying spontaneously. Cord was clamped with Shelli clamps and cut and the was handed to the human resources professional in attendance, and that was baby A. Second sac was noted. Rupture of membrane was performed using forceps with teeth. Clear amniotic fluid was noted again. Baby was delivered from a cephalic presentation. First head was delivered. The remainder of the was delivered as atraumatically as possible. Cord was clamped with two cord clamps and cut and the was handed to human resources professional in attendance. This was baby B. Cord bloods were obtained for both baby A and B. Placenta was delivered intact manually and intact. Uterus then exteriorized. Ovaries and tubes appeared to be within normal limits. Good contracted uterus was noted. Lap pad was used to clear debris from inside the uterus. An 0 Vicryl suture was used to close the first layer of the uterus. Second layer of the uterus was closed using 0 Vicryl suture imbricating the first layer, good hemostasis was assured. Attention was drawn to the left fallopian tube after the fimbriated end. Fimbriectomy was performed using 2 Shelli clamps. This was doubly ligated using 2-0 Chromic suture. Hemostasis being assured. Left fallopian tube was excised and sent to pathology lab. The stump was noted to have good hemostasis. Same was done on the right fallopian tube. Irrigation of posterior cul-de-sac was performed. A copious irrigation was performed. Lower uterine segment was inspected again, noted to have some oozing and hemostasis was assured using electrocautery. Uterus was placed back into the peritoneal cavity. All equipments were removed and accounted for. Decision as made to place Gelfoam in the lower uterine segment. One piece was placed and 0 Vicryl suture was then used to close the peritoneal layer in a running fashion. This was done after an OnQ catheter was placed. This was placed through the skin and the other end of the catheter was then placed at the fundus of the uterus. After peritoneum was closed another catheter for the OnQ was placed on the right side of the abdomen and placed below the fascial layer. An 0 Vicryl suture was used to approximate the fascial layer in a running fashion. Hemostasis being assured. A 2-0 plain suture was used to approximate the subcuticular layer. A 3-0 Vicryl suture was used to approximate the skin. Dermabond, Steri-Strips, and pressure bandage were applied. Dermabond was placed at the site of the catheter for the OnQ. Steri-Strips and Tegaderm were placed. All equipments, sponges, and needles accounted for. She was brought to the recovery room in stable condition. Jorge Smith DO
[2018-12-27] MEDS: Simethicone 80 mg Chewtab PO SCH ×3 (04:26→17:44)
--- NOTE | 2018-12-27 08:27 | OBPPN ---
Datetime: 12/27/2018 08:22 PP Pain Prov: Within normal limits PP Nausea Prov: Denies PP Flatus Prov: Yes PP Breasts Prov: Normal PP Heart Prov: Normal PP Lungs Prov: Normal PP Abdomen/Uterus Prov: Not Done PP Lochia Prov: Not Done PP Vulva/Perineum Prov: Not Done PP CVA Tenderness Prov: Normal PP Extremities Prov: Normal PP Impression Prov: Normal progression PP Plan Prov: Discharge PP Progress Note Prov: Patient doing well ambulating tolerating diet pain well controlled Vital signs stable afebrile Uterus firm below the umbilicus Incision clean dry intact Extremities no Postop day #3 Cleared for discharge Follow-up with PMD in 1 week Nothing per vagina Prescriptions provided Vital Signs Provider PP: Reviewed Datetime: 12/27/2018 06:15 PP BM Prov: No PP C/S Incision Prov: Normal PP Progress Prov: Normal
--- NOTE | 2018-12-27 08:29 | OBDCSUM ---
Datetime: 12/27/2018 06:30 Discharged to, Provider: Home Follow up at, Provider: Disch Instr Activity: Normal activity; May Shower Disch Instr Diet: Regular Discharge Instructions, Provider: Routine instructions given Discharge Diagnosis, Provider: Term Delivered Follow up in weeks, Provider: 1-2 weeks Disch Referrals: None Contraception discussed, Prov: Yes Disch Activity Restrictions: No sexual activity; Nothing in vagina - [place], tampons, douche Discharge Comment, Provider: 33 y/o S/P repeat C section and BTL at 37.5 weeks EGA: 37.5 weeks Diagnosis: Repeat C section and BTL L_D summary: Repeat C section and BTL. No complications. DOD: 12/24/18 @ 12:54 and 12: 55 Twin A Sex: Male, Weight: 3050 gm : 9/9 Feeding: breast/bottle Twin B Sex: Female, Weight: 3010gm : 8/9 Feeding: breast/bottle summary: No complications during , Lochia is similar volume to menses. CBC on admission 8.6/28.7 CBC 8.6/28.7 Blood type: O+ DISCHARGE DATA D/C DATE: 12/27/18 DISCHARGE INSTRUCTIONS: -Encouraged -PNV 1 tab po q/day -Ibuprofen 600 mg 1 tab po q6h PRN mild pain # 20 -Percocet 5/325 mg tab Q4 PRN # 20 -Feosol 325 mg Tab BID # 60 with 1 refill -Ambulate with caution, nothing per vagina/sex for 4 weeks, no heavy lifting, avoid stairs, if exc essive bleeding or fever without relief from Ibuprofen go to ED - ED precautions: If excessive bleeding, pain that does not get relief, fever >100.4, palpitations , SOB, CP or other concerning symptom go to the ED. - PT was urged if feeling sad, mood swing, depression, neglect of baby, suicidal thoughts, homicid al thoughts go to ER or call 911 for help - Pt should go to her Primary care doctor if have difficulty with breast feeding F/U with [facility] clinic= in 1-2 weeks for wound check and 4-6 weeks for check up Matthew Ross, PGY1 Patient cleared for discharge Contraception after Delivery: Tubal Ligation
[2018-12-27] MEDS: Multivitamin With Minerals Tab PO SCH (09:13)
[2018-12-28 03:31] VITALS: BP 147/83; PULSE 70; RESP 20; TEMP 98.6; O2SAT 99
== END 2018-12-27 19:30 | disposition home or self-care (01) | DRG 540 ==
LOC: H.EROB2 05:51 → H.L&D 06:50 → H.OB/GYN 16:29
PROVIDERS: ADMIT Obstetrics & Gynecology; ATTEND Obstetrics & Gynecology
PROC: 10D00Z1 Extraction of Products of Conception, Low, Open Approach (ICD-10-PCS; principal; 2018-12-24)
PROC: 0UB70ZZ Excision of Bilateral Fallopian Tubes, Open Approach (ICD-10-PCS; 2018-12-24)
PROC: 4A1HXCZ Monitoring of Products of Conception, Cardiac Rate, External Approach (ICD-10-PCS; 2018-12-24)
DX: O34.211 Maternal care for low transverse scar from previous cesarean delivery (principal); O30.003 Twin pregnancy, unspecified number of placenta and unspecified number of amniotic sacs, third trimester; O32.1XX2 Maternal care for breech presentation, fetus 2; O66.0 Obstructed labor due to shoulder dystocia; Z37.2 Twins, both liveborn; Z3A.38 38 weeks gestation of pregnancy; Z30.2 Encounter for sterilization; R11.2 Nausea with vomiting, unspecified

== ENCOUNTER 2018-12-30 09:15 | Inpatient (IN) | payer MEDICAID ==
[2018-12-30 09:22] VITALS: BMI 43.2
[2018-12-30] MEDS ORDERED: Sodium Chloride 0.9% 1,000 ML IV STA ×2 (10:03→15:49)
--- NOTE | 2018-12-30 10:36 | ED PDOC ---
HPI: Fever Time Seen by Provider: 12/30/18 09:36 Additional Comments: 33 y/o female presents to the ED complaining of fever, back pain, and bilateral leg pain since last night. states patient had a c- section 1 week ago, was fine until developed fever @ 3 AM today. Patient had epiduo during and admits breast feeding. Patient denies sore throat, cough, SOB, CP, nausea, vomiting, abnormal abdominal pain, urinary symptoms, vaginal discharge. Translation provided by (preferred). PMD: Dr. Jakub Gong Past Medical History Reviewed: Historical Data, Nursing Documentation, Vital Signs Vital Signs: Last Vital Signs Temp 102.0 F H 12/30/18 09:44 Pulse 131 H 12/30/18 09:31 Resp 18 12/30/18 09:31 BP 121/72 12/30/18 09:31 Pulse Ox 99 12/30/18 09:31 Primary Care Provider: Non [facility] Provider, - Surgical History Surgical History: (lower horizontal ) - Family History Family History: States: Unknown Family Hx - Immunization History Hx Tetanus Toxoid Vaccination: No - Home Medications Home Medications: Ambulatory Orders Medication Instructions Recorded Vit #76/Iron,Carb/FA 1 each PO DAILY #30 tablet 05/12/18 [Prenatabs Rx Tablet] Docusate [Colace] 100 mg PO BID #20 cap 12/27/18 Ferrous Sulfate [Feosol] 325 mg PO BID #60 tab 12/27/18 Ibuprofen [Motrin Tab] 600 mg PO Q6H PRN #20 tab 12/27/18 oxyCODONE/Acetaminophen [Percocet 1 tab PO Q4 PRN #20 tab 12/27/18 5/325 mg Tab] - Allergies Allergies/Adverse Reactions: Allergies Allergy/AdvReac Type Severity Reaction Status Date / Time No Known Allergies Allergy Verified 12/22/18 01:38 Review of Systems ROS Statement: Except As Marked, All Systems Reviewed And Found Negative Constitutional: Positive for: Fever Musculoskeletal: Positive for: Back Pain, Leg Pain Physical Exam - Reviewed Nursing Documentation Reviewed: Yes Vital Signs Reviewed: Yes - Physical Exam Appears: Positive for: Non-toxic, Uncomfortable, In Acute Distress Head Exam: Positive for: ATRAUMATIC, NORMAL INSPECTION, NORMOCEPHALIC Skin: Positive for: Normal Color, Warm, Dry Eye Exam: Positive for: EOMI, Normal appearance, PERRL ENT: Positive for: Normal ENT Inspection Neck: Positive for: Normal, Painless ROM, Supple Cardiovascular/Chest: Positive for: Regular Rate, Rhythm, Murmur, Tachycardia, Other (BREAST: No erythema, no discharge, no induration) Respiratory: Positive for: Normal Breath Sounds. Negative for: Wheezing, Respiratory Distress Gastrointestinal/Abdominal: Positive for: Normal Exam, Soft, Tenderness (Mild suprapubic), Other (Horizontal incision C/D/I). Negative for: Guarding, Rebound Pelvic Exam: Positive for: External Exam Normal, Blood (Minimal dark blood), Other (President Celebrity Acquistion: Lori). Negative for: Active Bleeding, Discharge, Lesions, Mass, Ulcers Back: Positive for: Normal Inspection, Vertebral Tenderness (Lumbar spine) Extremity: Positive for: Normal ROM, Tenderness (Generalized both legs), Pedal Edema, Swelling Neurological/Psych: Positive for: Awake, Alert, Normal Tone, Oriented (x3). Negative for: Motor/Sensory Deficits - Laboratory Results Result Diagrams: 12/30/18 10:40 12/30/18 10:40 - ECG O2 Sat by Pulse Oximetry: 99 - Critical Care Total Time (In Min): 45 Medical Decision Making Medical Decision Making: Time:1003 Impression: Plan: -VBG shock panel -EKG -CMP -ED urine -CBC -PTT -Prothrobim -Chest x-ray -MRI spine -Morphine 2mg IV -Ibuprofen 600mg -Sodium chloride -Acetaminophen 650mg PO -Blood culture -Urine culture -Urinalysis -Influenza 15:[address] Gonzalez, ultrasound results to be expected after delivery. Recommends dicloxacillin. 1618: Spoke with Dr. Gonzalez with official pelvic US read; Dr. Gonzalez states WBC unlikely to be endometritis, possibly early mastitis, recommends Dicloxacillin and frequent pumping. CT CHEST/ABD/PELVIS: Pending. Scribe Attestation: Documented by Magda Rios, acting as a scribe for Hazel Davila. Provider Scribe Attestation: All medical record entries made by the Scribe were at my direction and personally dictated by me. I have reviewed the chart and agree that the record accurately reflects my personal performance of the history, physical exam, medical decision making, and the department course for this patient. I have also personally directed, reviewed, and agree with the discharge instructions and disposition. Disposition - Clinical Impression Clinical Impression: fever, Sepsis - Patient ED Disposition Is Patient to be Admitted: Yes - Disposition Disposition Time: 17:13 Condition: STABLE Forms: [employer] (Taiwanese) - Pt Status Changed To: Hospital Disposition Of: Inpatient - Admit Certification Admit to Inpatient:: After my assessment, the patient will require hospitalization for at least two midnights. This is because of the severity of symptoms shown, intensity of services needed, and/or the medical risk in this patient being treated as an outpatient. - POA Present On Arrival: None
[2018-12-30 10:46] LABS: VENOUS BLOOD GAS BASE EXCESS -0.4 mmol/L (0.0-2.0); VENOUS BLOOD GAS PCO2 32 mmHg (40-60); VENOUS BLOOD GAS PO2 46 mm/Hg (30-55); VENOUS BLOOD PH 7.46 (7.32-7.43)
[2018-12-30 10:46] LABS: BASO # 0.1 K/uL (0.0-0.2); BASO % 1.1 % (0.0-2.0); EOS # 0.1 K/uL (0.0-0.7); EOS % 0.8 % (0.0-4.0); HEMOGLOBIN 9.1 g/dL (12.0-16.0); LYMPH # 0.2 K/uL (1.0-4.3); LYMPH % 2.8 % (20.0-40.0); MEAN CELL VOLUME 65.6 fl (81.0-99.0); MEAN CORPUSCULAR HEMOGLOBIN 20.2 pg (27.0-31.0); MEAN CORPUSCULAR HGB CONC 30.8 g/dL (33.0-37.0); MEAN PLATELET VOLUME 8.9 fl (7.2-11.7); MONO # 0.3 K/uL (0.0-0.8); MONO % 3.1 % (0.0-10.0); NEUT % 92.2 % (50.0-75.0); PLATELET COUNT 297 K/uL (130-400); RBC 4.51 Mil/uL (3.80-5.20); RED CELL DISTRIBUTION WIDTH 20.8 % (11.5-14.5); WHITE BLOOD COUNT 8.7 K/uL (4.8-10.8)
[2018-12-30 10:52] LABS: INR 1.1; PROTHROMBIN TIME 12.3 Seconds (9.8-13.1)
[2018-12-30 10:55] LABS: PARTIAL THROMBOPLASTIN TIME 28.6 Seconds (25.6-37.1)
[2018-12-30 11:04] LABS: ALB/GLOB RATIO 1.1 (1.0-2.1); ALBUMIN 3.7 g/dL (3.5-5.0); ALT/SGPT 27 U/L (9-52); AST/SGOT 34 U/L (14-36); BLOOD UREA NITROGEN 11 mg/dl (7-17); CALCIUM 8.6 mg/dL (8.4-10.2); GFR NON-AFRICAN AMERICAN > 60
[2018-12-30 11:13] LABS: SQUAMOUS EPITHIAL 3 /hpf (0-5); URINE BACTERIA RARE (<OCC); URINE BILIRUBIN NEGATIVE (NEGATIVE); URINE CLARITY SLIGHTY-CLOUDY (Clear); URINE COLOR YELLOW (YELLOW); URINE GLUCOSE (UA) NEG (NEGATIVE); URINE LEUKOCYTE ESTERASE NEG Leu/uL (Negative); URINE PROTEIN NEGATIVE (NEGATIVE); URINE UROBILINOGEN 0.2-1.0 mg/dL (0.2-1.0)
[2018-12-30 11:17] LABS: URINE BLOOD MODERATE (NEGATIVE)
--- NOTE | 2018-12-30 11:23 | RAD ---
Date of service: 12/30/2018 HISTORY: Fever COMPARISON: No prior. TECHNIQUE: Chest PA and lateral views FINDINGS: LUNGS: No active pulmonary disease. PLEURA: No significant pleural effusion identified. No pneumothorax apparent. CARDIOVASCULAR: No aortic atherosclerotic calcification present. Mild cardiomegaly suggested. Main pulmonary artery segment appears somewhat prominent. No perihilar or peripheral pulmonary vascular congestion. OSSEOUS STRUCTURES: No significant abnormalities. VISUALIZED UPPER ABDOMEN: Normal. OTHER FINDINGS: None. IMPRESSION: No acute pulmonary disease appreciable. Mild cardiomegaly noted. Main pulmonary artery may be dilated but there is no peripheral or central hilar vascular congestion evident.
[2018-12-30 11:42] LABS: ANISOCYTOSIS MODERATE; BANDS 5 % (0-2); GIANT PLATELETS PRESENT; HYPOCHROMIC MODERATE; LARGE PLATELETS PRESENT; LYMPHOCYTE 2 % (20-50); MICROCYTOSIS MODERATE; MONOCYTE 2 % (0-10); NEUTROPHIL 91 % (42-75); PLATELET ESTIMATE NORMAL (NORMAL); TEARDROP CELLS SLIGHT; TOTAL CELLS COUNTED 100
[2018-12-30] MEDS ORDERED: Gadodiamide 287 MG/ML VIAL (15ML) IV ONE (11:46)
--- NOTE | 2018-12-30 13:16 | MRI ---
Date of service: 12/30/2018 PROCEDURE: MR LUMBAR SPINE WITH AND WITHOUT CONTRAST HISTORY: Lower back pain, s/p epidural and , fever COMPARISON: None available. TECHNIQUE: Multiecho multiplanar sequences were performed through the lumbar spine with and without the use of intravenous contrast (Omnipaque 20 cc). FINDINGS: Normal lumbar lordosis. Vertebral body heights are preserved. Marrow signal unremarkable. Conus medullaris unremarkable at the level of L1 upper endplate. Paraspinal soft tissues are unremarkable. No abnormal intrathecal or epidural enhancement. T12-L1: No disc herniation, spinal canal stenosis or neural foraminal narrowing. L1-2: No disc herniation, spinal canal stenosis or neural foraminal narrowing. L2-3: No disc herniation, spinal canal stenosis or neural foraminal narrowing. L3-4: No disc herniation, spinal canal stenosis or neural foraminal narrowing. L4-5: No disc herniation, spinal canal stenosis or neural foraminal narrowing. L5-S1: No disc herniation, spinal canal stenosis or neural foraminal narrowing. OTHER FINDINGS: Note is made of mild to moderate prominence of the right renal pelvis with mild prominence of the right renal calices although there is no apparent delayed nephrogram in the visualized bilateral kidneys in the postcontrast enhanced T1 weighted sequences. IMPRESSION: Unremarkable pre and post contrast enhanced MRI of the lumbar spine. No spinal stenosis appreciated throughout the lumbar spine and there is no intrathecal or epidural enhancement evident. A prominence of the right pelvocaliceal system is appreciated without apparent delayed nephrogram. Consider follow-up renal ultrasound if clinically warranted.
--- NOTE | 2018-12-30 15:35 | US ---
Date of service: 12/30/2018 PROCEDURE: Ultrasound of the Kidneys HISTORY: Fever COMPARISON: Lumbar spine MRI 12/30/2018. TECHNIQUE: Sonogram of the kidneys. FINDINGS: RIGHT KIDNEY: Measures: 12.9 x 4.9 x 4.9 cm. Normal in size, contour and echogenicity. No stone, solid mass lesion or hydronephrosis visualized. LEFT KIDNEY: Measures: 13.6 x 4.9 x 4.7 cm. 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 No stone or hydronephrosis visualized. OTHER FINDINGS: None. IMPRESSION: No obstructive uropathy bilaterally. Prior prominence of the right pelvicaliceal system in incidentally captured in prior MRI lumbar spine is not identified currently.
[2018-12-30] MEDS ORDERED: Piperacillin/Tazobact 4.5 GM in Sodium Chloride 0.9% 100 ML IVPB STA (15:51)
[2018-12-30] MEDS ORDERED: Iohexol 300 100 ML IJ ONE (15:56)
[2018-12-30] MEDS ORDERED: Sodium Chloride 0.9% 50 ML IV ONE (15:57)
--- NOTE | 2018-12-30 15:59 | US ---
Date of service: 12/30/2018 HISTORY: Fever, post COMPARISON: None available. TECHNIQUE: Transabdominal pelvic ultrasound was performed with longitudinal and transverse images submitted for interpretation. FINDINGS: UTERUS: Measures 17.5 x 7.8 x 11.9 cm. Uterus appears rather enlarged with diffusely heterogeneous echotexture concordant with state. There is an area of diminished echogenicity identified at the lower uterine segment anteriorly and toward the left which is avascular and appears to bridges both the submucous and sub serosal space. No shadowing is related to this structure and it is unclear as to whether this is an area of potential edema or possible small fibroid. It appears to abut the submucous space but not be intrinsic to the endometrial cavity posteriorly. Less likely is that this represents a hematoma irregularly distending endometrial cavity at the lower uterine segment. No definite additional uterine parenchymal findings focally. ENDOMETRIUM: Measures 24.0 mm in diameter. Moderately heterogeneous in echotexture. No suspicious blood flow changes on color Doppler ultrasound. CERVIX: No cervical abnormality identified. RIGHT OVARY: Measures 6.5 x 3.4 x 5.7 cm. Normal flow. Nonspecific right ovarian enlargement without focal mass appreciable. LEFT OVARY: Measures 4.6 x 2.4 x 4.5 cm. No solid mass. Normal flow. Left ovary is also mildly enlarged though not quite like the right ovary. FREE FLUID: No significant free fluid noted. OTHER FINDINGS: None. IMPRESSION: Nonspecific lucency at the anterior lower uterine segment of the uterus may reflect a non shadowing fibroid though other etiologies including possible myometrial edema are not excluded completely. Prominent endometrium is appreciated in this patient, but without blood flow changes that might define retained products of conception or definitive endometritis. Further clinical correlation is recommended nevertheless. In addition, the ovaries are prominent, moderately at the right and mildly at the left. No definite ovarian mass appreciated bilaterally.
--- NOTE | 2018-12-30 17:27 | CARD ---
APPROVED REPORT Date of service: 12/30/2018 EKG Measurement Heart [id number] <Conclusion> Sinus tachycardia Non specific T-wave changes Abnormal Electrocardiogram
--- NOTE | 2018-12-30 17:34 | CT ---
Date of service: 12/30/2018 PROCEDURE: CT Chest, Abdomen and Pelvis with contrast HISTORY: Post , fever COMPARISON: None available. TECHNIQUE: Following the intravenous administration of iodinated contrast material, a CT examination of the abdomen and pelvis was performed from the domes of the diaphragms to the symphysis pubis with reformatted datasets provided in axial, sagittal and coronal planes. Oral contrast was not administered as per referring physician request. IV dose administered: Omnipaque 300, 95 cc Radiation dose: Total exam DLP = 1008.71 mGy-cm. This CT exam was performed using one or more of the following dose reduction techniques: Automated exposure control, adjustment of the mA and/or kV according to patient size, and/or use of iterative reconstruction technique. FINDINGS: CT CHEST WITH CONTRAST: LUNGS: Clear. No nodule, mass or consolidation. Central airways appear clear. MEDIASTINUM: Thoracic inlet appears unremarkable. Normal caliber aorta and pulmonary arterial trunk. No aortic dissection. Mild cardiomegaly noted. LYMPH NODES: Unremarkable. PLEURA: Unremarkable. No pneumothorax. No pleural fluid. BONES: Unremarkable. OTHER FINDINGS: None. CT ABDOMEN AND PELVIS: LIVER: Unremarkable. No gross lesion or ductal dilatation. GALLBLADDER AND BILE DUCTS: Distended but otherwise unremarkable appearing gallbladder. No prominent CBD dilatation. PANCREAS: Unremarkable. No gross lesion or ductal dilatation. SPLEEN: Splenomegaly to 14.1 cm without focal mass appreciable. ADRENALS: Unremarkable. No mass. KIDNEYS AND URETERS: Mild right hydronephrosis identified with prominent right hydroureter transitioning at the level of the mid pelvis without definite related radiodense urolithiasis at the right kidney and ureter as well as the urinary bladder though layering iodinated contrast material obscures the dependent urinary bladder from potential radiodense calculi. The left kidney appears unremarkable. The pattern could be a function of residual from prior related uterine enlargement. No striated nephrogram to indicate pyelonephritis though clinical correlation is nevertheless advised A punctate, nonobstructing intrarenal calculus is suggested at the upper pole left kidney. No perinephric fluid collection or reaction bilaterally. VASCULATURE: No aortic atherosclerotic calcification or mural plaque present. Unremarkable. No aortic aneurysm. BOWEL: Stomach is collapsed not well evaluated. Evaluation of the gastrointestinal tract is limited due to the lack of oral contrast administration. No bowel obstruction appreciable with mild retained fecal material scattered throughout the proximal to mid large-bowel and millimole volume at the distal large bowel. APPENDIX: No overt CT pattern of appendicitis however the appendix not identified. Clinically correlate further. PERITONEUM: No definitive peritoneal abscess appreciable. No free fluid. No free air. LYMPH NODES: Unremarkable. No enlarged lymph nodes. BLADDER: The bladder appears smooth and thin walled with moderate distension. REPRODUCTIVE: An appropriate enlarged uterus is appreciated status post prior delivery by Caesarean section 6 days previously reportedly. There is heterogeneous enhancement seen at the upper uterine fundus potentially related to the endometrium. Small area of diminished density seen anteriorly at the lower uterine segment may reflect limited residual chronic hematoma from prior surgery. Limited postoperative change identified at the inferior abdominal/pelvic wall status post prior cyst Caesarean section with trace gas remaining at the operative site. No gross fluid collection or suspicious contrast enhancement to define abscess. BONES: No acute fracture. OTHER FINDINGS: None. IMPRESSION: 1. Mild cardiomegaly. No pulmonary vascular congestion. 2. No acute infiltrate bilaterally. No pleural effusion or pneumothorax. 3. Mild right hydronephrosis and prominent right hydroureter are concordant with partially imaged right kidney and ureter in lumbar spine MRI performed 12/30/2018 but contrast X lack of hydronephrosis seen in renal ultrasound also performed today. No overt pattern to suggest pyelonephritis though clinical correlation is nevertheless recommended. Consider potential residual obstructive uropathy from prior gestation though distal right ureteral stricture or loosing calculus is difficult to completely exclude. Distal portion of the right ureter appears normal caliber. 4. Punctate intrarenal calculus upper pole left kidney. No left hydronephrosis. 5. No peritoneal abscess appreciate including the pelvis. 6. uterus appreciated with heterogeneous enhancement including upper fundal posterior endometrium. Faint lucent focus at the anterior lower uterine segment may reflect postoperativehematoma or complex seroma versus limited late subacute or chronic hemorrhagic blood products. This corresponds to echo lucency seen in the same location in pelvis ultrasound also performed 12/30/2018. Peritoneal abscess not clearly identified in the pelvis or abdomen. 7. Limited postoperative changes at the pelvic wall anteriorly related to prior STIR series section including limited gas in subcutaneous fat but no prominent fluid collection.
--- NOTE | 2018-12-30 20:51 | CP.PCM.CON ---
History of Present Illness - History of Present Illness History of Present Illness: Pt is a 33 yo , s/p repeat for term twin POD #6, presented to ER with feeling feverish and back pain with radiation to back of legs. Tmax in ER = 102.0, max HR is 110. Otherwise patient denies heavy bleeding, urinary discomfort, no N/V, no LOC, no CP/SOB, ambulating normally, abdominal pain tolerable with meds. UA/CBC/CMP normal excpet increased neutrophil bands were noted. CT/MRI and U/S do not show abscess or other source of infection. Incision clean - no errythema or drainage. No fundal tenderness, vaginal bleeding mild. Patient is q 2-3 hours, declines having increased breast pain with engorgement, no errythema of the breast noted. No other sick symptoms. Patient assessed at bedside a few hours after admission and has no additional complaints. Current Temperature is 101.0, rest of vitals stable. Patient had an uncomplicated and normal course Past Patient History - Infectious Disease Hx of Infectious Diseases: None - Past Social History Smoking Status: Never Smoked - CARDIAC Hx Cardiac Disorders: No - PULMONARY Hx Respiratory Disorders: No - NEUROLOGICAL Hx Neurological Disorder: No - HEENT Hx HEENT Problems: No - RENAL Hx Chronic Kidney Disease: No - ENDOCRINE/METABOLIC Hx Endocrine Disorders: No - HEMATOLOGICAL/ONCOLOGICAL Hx Blood Disorders: No - INTEGUMENTARY Hx Dermatological Problems: No - MUSCULOSKELETAL/RHEUMATOLOGICAL Hx Musculoskeletal Disorders: No - GENITOURINARY/GYNECOLOGICAL Hx Genitourinary Disorders: No - PSYCHIATRIC Hx Psychophysiologic Disorder: No - SURGICAL HISTORY Hx Surgeries: No - ANESTHESIA Hx Anesthesia: No Meds Allergies/Adverse Reactions: Allergies Allergy/AdvReac Type Severity Reaction Status Date / Time No Known Allergies Allergy Verified 12/22/18 01:38 - Medications Medications: Current Medications Acetaminophen (Tylenol 325mg Tab) 650 mg PO Q4 PRN PRN Reason: Fever >100.4 F Ibuprofen (Motrin Tab) 400 mg PO Q6 PRN PRN Reason: Pain, Mild (1-3) Physical Exam - Constitutional Appears: No Acute Distress - Head Exam Head Exam: ATRAUMATIC - Respiratory Exam Respiratory Exam: Clear to Auscultation Bilateral, NORMAL BREATHING PATTERN - Cardiovascular Exam Cardiovascular Exam: REGULAR RHYTHM - GI/Abdominal Exam GI & Abdominal Exam: Normal Bowel Sounds, Soft Additional comments: Incision clean/dry/intact, steri strips still on, no errythema or drainage noted, no increased tenderness No fundal tenderness - Extremities Exam Extremities exam: Positive for: normal inspection - Back Exam Back exam: NORMAL INSPECTION Additional comments: lower back discomfort Results - Vital Signs Recent Vital Signs: Last Vital Signs Temp 101.0 F H 12/30/18 19:05 Pulse 92 H 12/30/18 19:05 Resp 18 12/30/18 19:05 BP 137/78 12/30/18 19:05 Pulse Ox 98 12/30/18 19:05 - Labs Result Diagrams: 12/30/18 10:40 12/30/18 10:40 Labs: Laboratory Results - last 24 hr 12/30/18 12/30/18 12/30/18 10:09 10:40 10:40 WBC 8.7 RBC 4.51 Hgb 9.1 L Hct 29.6 L MCV 65.6 L MCH 20.2 L MCHC 30.8 L RDW 20.8 H Plt Count 297 MPV 8.9 Neut % (Auto) 92.2 H Lymph % (Auto) 2.8 L Harlan % (Auto) 3.1 Eos % (Auto) 0.8 Baso % (Auto) 1.1 Neut # (Auto) 8.0 H Lymph # (Auto) 0.2 L Harlan # (Auto) 0.3 Eos # (Auto) 0.1 Baso # (Auto) 0.1 Neutrophils % (Manual) 91 H Band Neutrophils % 5 H Lymphocytes % (Manual) 2 L Monocytes % (Manual) 2 Platelet Estimate Normal Large Platelets Present Giant Platelets Present Hypochromasia (manual) Moderate Anisocytosis (manual) Moderate Microcytosis (manual) Moderate Tear Drop Cells Slight PT INR APTT pO2 46 VBG pH 7.46 H VBG pCO2 32 L VBG HCO3 24.2 VBG Total CO2 23.8 VBG O2 Sat (Calc) 87.0 H VBG Base Excess -0.4 L VBG Potassium 3.8 Sodium 132.0 133 Chloride 103.0 102 Glucose 96 Lactate 1.0 FiO2 21.0 Potassium 4.0 Carbon Dioxide 22 Anion Gap 13 BUN 11 Creatinine 0.5 L Est GFR ( Amer) > 60 Est GFR (Non-Af Amer) > 60 Random Glucose 93 Calcium 8.6 Total Bilirubin 0.7 AST 34 ALT 27 Alkaline Phosphatase 124 Total Protein 7.1 Albumin 3.7 Globulin 3.5 Albumin/Globulin Ratio 1.1 Venous Blood Potassium 3.8 Urine Color Urine Clarity Urine pH Ur Specific [place] Urine Protein Urine Glucose (UA) Urine Ketones Urine Blood Urine Nitrate Urine Bilirubin Urine Urobilinogen Ur Leukocyte Esterase Urine RBC (Auto) Urine Microscopic WBC Ur Squamous Epith Cells Urine Bacteria Influenza Typ A,B (EIA) 12/30/18 12/30/18 12/30/18 10:40 10:40 10:45 WBC RBC Hgb Hct MCV MCH MCHC RDW Plt Count MPV Neut % (Auto) Lymph % (Auto) [place] % (Auto) Eos % (Auto) Baso % (Auto) Neut # (Auto) Lymph # (Auto) [place] # (Auto) Eos # (Auto) Baso # (Auto) Neutrophils % (Manual) Band Neutrophils % Lymphocytes % (Manual) Monocytes % (Manual) Platelet Estimate Large Platelets Giant Platelets Hypochromasia (manual) Anisocytosis (manual) Microcytosis (manual) Tear Drop Cells PT 12.3 INR 1.1 APTT 28.6 pO2 VBG pH VBG pCO2 VBG HCO3 VBG Total CO2 VBG O2 Sat (Calc) VBG Base Excess VBG Potassium Sodium Chloride Glucose Lactate FiO2 Potassium Carbon Dioxide Anion Gap BUN Creatinine Est GFR ( Amer) Est GFR (Non-Af Amer) Random Glucose Calcium Total Bilirubin AST ALT Alkaline Phosphatase Total Protein Albumin Globulin Albumin/Globulin Ratio Venous Blood Potassium Urine Color Yellow Urine Clarity Slighty-cloudy Urine pH 7.0 Ur Specific [place] 1.016 Urine Protein Negative Urine Glucose (UA) Neg Urine Ketones Negative Urine Blood Moderate Urine Nitrate Negative Urine Bilirubin Negative Urine Urobilinogen 0.2-1.0 Ur Leukocyte Esterase Neg Urine RBC (Auto) 2 Urine Microscopic WBC 1 Ur Squamous Epith Cells 3 Urine Bacteria Rare Influenza Typ A,B (EIA) Negative for flu a/b Assessment & Plan - Assessment and Plan (Free Text) Assessment: A/P 33 yo POD #6 s/p repeat admitted with fever of unknown origin 1. Patient's presentation and initial assessment discussed with ER physician and attending admitting patient. No infection source noted at this time and no abnormal labs noted. Patient besides fever presents with normal recovery. 2. Indicated at this time until further signs/symptoms or abnormal labs present, best course would be to treat for possible mastitis and give appropriate course of antibiotics - Dicloxacillin PO and have patient follow up as outpatient in clinic where she has already scheduled appointment 01/01 for wound check. Patient was admitted and started on on Unasyn and Doxycycline. Patient encouraged to continue pumping while in hospital. 3. Continue all other floor orders as per admitting attending. 4. Consultation appreciated
[2018-12-31] MEDS ORDERED: Azithromycin 500 MG in Sodium Chloride 0.9% 250 ML IVPB SCH (09:00)
--- NOTE | 2018-12-31 10:37 | CP.PCM.CON ---
History of Present Illness - History of Present Illness History of Present Illness: 3 y/o female presents to the ED complaining of fever, back pain, and bilateral leg pain She had a 1 week ago, was fine until developed fever Denies pain, urinary symptoms, vaginal discharge. has severe right mastitis if fever persists add Vanco IV Ancef for now await cultures Review of Systems - Review of Systems All systems: reviewed and no additional remarkable complaints except - Constitutional Constitutional: As Per HPI - EENT Eyes: absent: As Per HPI, Blind Spots, Blurred Vision, Change in Vision, Decreased Night Vision, Diplopia, Discharge, Dry Eye, Exophthalmos, Floaters, Irritation, Itchy Eyes, Loss of Peripheral Vision, Pain, Photophobia, Requires Corrective Lenses, Sees Flashes, Spots in Vision, Tunnel Vision, Other Visual Disturbances, Loss of Vision, Other Ears: absent: As Per HPI, Decreased Hearing, Ear Discharge, Ear Pain, Tinnitus, Abnormal Hearing, Disequilibrium, Dizziness, Other Nose/Mouth/Throat: absent: As Per HPI, Epistaxis, Nasal Congestion, Nasal Discharge, Nasal Obstruction, Nasal Trauma, Nose Pain, Post Nasal Drip, Sinus Pain, Sinus Pressure, Bleeding Gums, Change in Voice, Dental Pain, Dry Mouth, Dysphagia, Halitosis, Hoarsness, Lip Swelling, Mouth Lesions, Mouth Pain, Odynophagia, Sore Throat, Throat Swelling, Tongue Swelling, Facial Pain, Neck Pain, Neck Mass, Other - Cardiovascular Cardiovascular: absent: As Per HPI, Acrocyanosis, Chest Pain, Chest Pain at Rest, Chest Pain with Activity, Claudication, Diaphoresis, Dyspnea, Dyspnea on Exertion, Edema, Irregular Heart Rhythm, Pain Radiating to Arm/Neck/Jaw, Leg Edema, Leg Ulcers, Lightheadedness, Orthopnea, Palpitations, Paroxysmal Nocturnal Dyspnea, Pedal Edema, Radiating Pain, Rapid Heart Rate, Slow Heart Rate, Syncope, Other - Respiratory Respiratory: absent: As Per HPI, Cough, Dyspnea, Hemoptysis, Dyspnea on Exertion, Wheezing, Snoring, Stridor, Pain on Inspiration, Chest Congestion, Excessive Mucous Production, Change in Mucous Color, Pain with Coughing, Other - Gastrointestinal Gastrointestinal: absent: As Per HPI, Abdominal Pain, Belching, Bloating, Change in Bowel Habits, Change in Stool Character, Coffee Ground Emesis, Constipation, Cramping, Diarrhea, Dyspepsia, Dysphagia, Early Satiety, Excessive Flatus, Fecal Incontinence, Heartburn, Hematemesis, Hematochezia, Loose Stools, Melena, Nausea, Odynophagia, Temesmus, Vomiting, Other - Genitourinary Genitourinary: absent: As Per HPI, Change in Urinary Stream, Difficulty Urinating, Dysuria, Flank Pain, Hematuria, Pyuria, Nocturia, Urinary Incontinence, Urinary Frequency, Urinary Hesitance, Urinary Urgency, Voiding Freq/Small Amts, Freq UTI, Hx Renal/Bladder Calculi, Hx /Renal Surgery, B ladder Distension, Other - Reproductive: Female Reproductive:Female: As Per HPI - Menstruation Menstruation: absent: As Per HPI, Amenorrhea, Amenorrhea/ Control, Currently Menstual, Cycle <21 Days, Cycle >35 Days, Cycle Variable, Menses 1-7 Days, Menses >/= 8 Days, Menses Variable, Cycle > 4 Weeks Between, No Menses for 6 Months, Heavy Menses, Light Menses, Normal Menses, Spotting Between Cycles, S/P Hysterectomy, Menopausal, Post Menopausal, Premenarche, Abnormal Vaginal Bleeding, Dysmenorrhea, Other - Musculoskeletal Musculoskeletal: As Per HPI. absent: Abnormal Gait, Arthralgias, Atrophy, Back Pain, Deformity, Joint Swelling, Limited Range of Motion, Loss of Height, Muscle Cramps, Muscle Weakness, Myalgias, Neck Pain, Numbness, Radiating Pain into Limb, Stiffness, Tingling, Other - Neurological Neurological: absent: As Per HPI, Abnormal Gait, Abnormal Hearing, Abnormal Movements, Abnormal Speech, Behavioral Changes, Burning Sensations, Confusion, Convulsions, Disequilibrium, Dizziness, Numbness, Focal Weakness, Frequent Falls, Headaches, Lack of Coordination, Loss of Vision, Memory Loss, Paresthesias, Radicular Pain, Restless Legs, Sensory Deficit, Syncope, Tingling, Tremor, Vertigo, Weakness, Other Visual Disturbances, Other - Psychiatric Psychiatric: absent: As Per HPI, Abnormal Sleep Pattern, Anhedonia, Anxiety, Auditory Hallucinations, Behavioral Changes, Change in Appetite, Change in Libido, Confusion, Depression, Difficulty Concentrating, Hallucinations, Homicidal Ideation, Hopelessness, Irritability, Memory Loss, Mood Swings, Panic Attacks, Paranoia, Suicidal Ideation, Visual Hallucinations, Tactile Hallucinations, Other - Endocrine Endocrine: absent: As Per HPI, Change in Body Appearance, Change in Libido, Cold Intolorance, Deepening of Voice, Excessive Sweating, Fatigue, Flushing, Heat Intolorance, Increase in Ring/Shoe/Hat Size, Palpitations, Polydipsia, Polyphagia, Polyuria, Other - Hematologic/Lymphatic Hematologic: absent: As Per HPI, Easy Bleeding, Easy Bruising, Lymphadenopathy, Other Past Patient History - Infectious Disease Hx of Infectious Diseases: None - Past Medical History & Family History Past Medical History?: No - Past Social History Smoking Status: Never Smoked - CARDIAC Hx Cardiac Disorders: No - PULMONARY Hx Respiratory Disorders: No - NEUROLOGICAL Hx Neurological Disorder: No - HEENT Hx HEENT Problems: No - RENAL Hx Chronic Kidney Disease: No - ENDOCRINE/METABOLIC Hx Endocrine Disorders: No - HEMATOLOGICAL/ONCOLOGICAL Hx Blood Disorders: No - INTEGUMENTARY Hx Dermatological Problems: No - MUSCULOSKELETAL/RHEUMATOLOGICAL Hx Musculoskeletal Disorders: No Hx Falls: No - GENITOURINARY/GYNECOLOGICAL Hx Genitourinary Disorders: No - PSYCHIATRIC Hx Psychophysiologic Disorder: No Hx Substance Use: No - SURGICAL HISTORY Hx Surgeries: Yes Hx Section: Yes (x3) - ANESTHESIA Hx Anesthesia: Yes Hx Anesthesia Reactions: No Hx Malignant Hyperthermia: No Has any member of the family had a problem w/ anesthesia?: No Meds Allergies/Adverse Reactions: Allergies Allergy/AdvReac Type Severity Reaction Status Date / Time No Known Allergies Allergy Verified 12/22/18 01:38 - Medications Medications: Current Medications Acetaminophen (Tylenol 325mg Tab) 650 mg PO Q4 PRN PRN Reason: Fever >100.4 F Last Admin: 12/31/18 04:43 Dose: 650 mg Ceftriaxone Sodium 1 gm/ (Sodium Chloride) 100 mls @ 100 mls/hr IVPB DAILY PANCHITO; Protocol Last Admin: 12/31/18 09:50 Dose: 100 mls/hr Azithromycin 500 mg/ Sodium (Chloride) 250 mls @ 250 mls/hr IVPB DAILY PANCHITO; Protocol Last Admin: 12/31/18 09:52 Dose: 250 mls/hr Ibuprofen (Motrin Tab) 400 mg PO Q6 PRN PRN Reason: Pain, Mild (1-3) Physical Exam - Constitutional Appears: Non-toxic, No Acute Distress, Chronically Ill - Head Exam Head Exam: ATRAUMATIC, NORMAL INSPECTION, NORMOCEPHALIC - Eye Exam Eye Exam: EOMI, Normal appearance, PERRL Pupil Exam: NORMAL ACCOMODATION, PERRL - ENT Exam ENT Exam: Mucous Membranes Moist, Normal Exam - Neck Exam Neck exam: Positive for: Normal Inspection - Respiratory Exam Respiratory Exam: Clear to Auscultation Bilateral, NORMAL BREATHING PATTERN - Cardiovascular Exam Cardiovascular Exam: REGULAR RHYTHM - GI/Abdominal Exam GI & Abdominal Exam: Normal Bowel Sounds, Soft. absent: Tenderness - Rectal Exam Rectal Exam: Deferred - Extremities Exam Extremities exam: Positive for: normal inspection - Back Exam Back exam: NORMAL INSPECTION - Neurological Exam Neurological exam: Alert, CN II-XII Intact, Normal Gait, Oriented x3, Reflexes Normal - Psychiatric Exam Psychiatric exam: Normal Affect, Normal Mood - Skin Skin Exam: Dry, Intact, Warm Additional comments: redness swelling right nipple Results - Vital Signs Recent Vital Signs: Last Vital Signs Temp 98.7 F 12/31/18 07:54 Pulse 71 12/31/18 07:54 Resp 18 12/31/18 07:54 BP 118/70 12/31/18 07:54 Pulse Ox 98 12/31/18 07:54 - Labs Result Diagrams: 12/30/18 10:40 12/30/18 10:40 Labs: Laboratory Results - last 24 hr 12/30/18 12/30/18 12/30/18 10:09 10:40 10:40 WBC 8.7 RBC 4.51 Hgb 9.1 L Hct 29.6 L MCV 65.6 L MCH 20.2 L MCHC 30.8 L RDW 20.8 H Plt Count 297 MPV 8.9 Neut % (Auto) 92.2 H Lymph % (Auto) 2.8 L Levy % (Auto) 3.1 Eos % (Auto) 0.8 Baso % (Auto) 1.1 Neut # (Auto) 8.0 H Lymph # (Auto) 0.2 L Levy # (Auto) 0.3 Eos # (Auto) 0.1 Baso # (Auto) 0.1 Neutrophils % (Manual) 91 H Band Neutrophils % 5 H Lymphocytes % (Manual) 2 L Monocytes % (Manual) 2 Platelet Estimate Normal Large Platelets Present Giant Platelets Present Hypochromasia (manual) Moderate Anisocytosis (manual) Moderate Microcytosis (manual) Moderate Tear Drop Cells Slight PT INR APTT pO2 46 VBG pH 7.46 H VBG pCO2 32 L VBG HCO3 24.2 VBG Total CO2 23.8 VBG O2 Sat (Calc) 87.0 H VBG Base Excess -0.4 L VBG Potassium 3.8 Sodium 132.0 133 Chloride 103.0 102 Glucose 96 Lactate 1.0 FiO2 21.0 Potassium 4.0 Carbon Dioxide 22 Anion Gap 13 BUN 11 Creatinine 0.5 L Est GFR ( Amer) > 60 Est GFR (Non-Af Amer) > 60 Random Glucose 93 Calcium 8.6 Total Bilirubin 0.7 AST 34 ALT 27 Alkaline Phosphatase 124 Total Protein 7.1 Albumin 3.7 Globulin 3.5 Albumin/Globulin Ratio 1.1 Venous Blood Potassium 3.8 Urine Color Urine Clarity Urine pH Ur Specific [place] Urine Protein Urine Glucose (UA) Urine Ketones Urine Blood Urine Nitrate Urine Bilirubin Urine Urobilinogen Ur Leukocyte Esterase Urine RBC (Auto) Urine Microscopic WBC Ur Squamous Epith Cells Urine Bacteria Influenza Typ A,B (EIA) 12/30/18 12/30/18 12/30/18 10:40 10:40 10:45 WBC RBC Hgb Hct MCV MCH MCHC RDW Plt Count MPV Neut % (Auto) Lymph % (Auto) Levy % (Auto) Eos % (Auto) Baso % (Auto) Neut # (Auto) Lymph # (Auto) Levy # (Auto) Eos # (Auto) Baso # (Auto) Neutrophils % (Manual) Band Neutrophils % Lymphocytes % (Manual) Monocytes % (Manual) Platelet Estimate Large Platelets Giant Platelets Hypochromasia (manual) Anisocytosis (manual) Microcytosis (manual) Tear Drop Cells PT 12.3 INR 1.1 APTT 28.6 pO2 VBG pH VBG pCO2 VBG HCO3 VBG Total CO2 VBG O2 Sat (Calc) VBG Base Excess VBG Potassium Sodium Chloride Glucose Lactate FiO2 Potassium Carbon Dioxide Anion Gap BUN Creatinine Est GFR ( Amer) Est GFR (Non-Af Amer) Random Glucose Calcium Total Bilirubin AST ALT Alkaline Phosphatase Total Protein Albumin Globulin Albumin/Globulin Ratio Venous Blood Potassium Urine Color Yellow Urine Clarity Slighty-cloudy Urine pH 7.0 Ur Specific [place] 1.016 Urine Protein Negative Urine Glucose (UA) Neg Urine Ketones Negative Urine Blood Moderate Urine Nitrate Negative Urine Bilirubin Negative Urine Urobilinogen 0.2-1.0 Ur Leukocyte Esterase Neg Urine RBC (Auto) 2 Urine Microscopic WBC 1 Ur Squamous Epith Cells 3 Urine Bacteria Rare Influenza Typ A,B (EIA) Negative for flu a/b Assessment & Plan (1) Mastitis associated with childbirth, delivered Status: Acute (2) fever Status: Acute (3) Sepsis Status: Acute - Assessment and Plan (Free Text) Assessment: cont IV Ancef await cukltures warm compresses [employer] follow up
--- NOTE | 2018-12-31 12:10 | US ---
Date of service: 12/31/2018 PROCEDURE: BILATERAL LOWER EXTREMITY VENOUS DUPLEX DOPPLER HISTORY: Bilateral leg pain COMPARISON: None available. TECHNIQUE: Standard and duplex Doppler ultrasonography of the bilateral lower extremities major deep veins was performed including graded compression and augmentation. Longitudinal and transverse projections have been submitted for interpretation. FINDINGS: Good compressibility, augmentation, phasic blood flow and morphology are identified at the bilateral common and superficial femoral as well as popliteal veins. The bilateral posterior tibial veins appear patent. IMPRESSION: No sonographic evidence to suggest deep venous thrombosis bilateral lower extremities.
[2018-12-31] MEDS: ceFAZolin 2 GM in Sodium Chloride 0.9% 100 ML IVPB SCH (16:35)
[2019-01-01] MEDS: ceFAZolin 2 GM in Sodium Chloride 0.9% 100 ML IVPB SCH ×3 (00:11→18:27)
--- NOTE | 2019-01-01 06:38 | CP.PCM.HP ---
History of Present Illness - History of Present Illness History of Present Illness: This is a 33 y/o , post op C section for twin preg # 6 , who presented to ER due to back pain and noted to have a fever with t max of 102. Initial evaluation showed a normal WBC with bands. Us of the abd ,pelvis and renal and CT scan of the abdomen and CXR were all unremarkable. She denies having any cough or dysuria, C section wound showed no erythema or drainage. She has some breast tenderness. Present on Admission - Present on Admission Any Indicators Present on Admission: No History of DVT/PE: No History of Uncontrolled Diabetes: No Urinary Catheter: No Decubitus Ulcer Present: No Past Patient History - Infectious Disease Hx of Infectious Diseases: None - Past Medical History & Family History Past Medical History?: No - Past Social History Smoking Status: Never Smoked - CARDIAC Hx Cardiac Disorders: No - PULMONARY Hx Respiratory Disorders: No - NEUROLOGICAL Hx Neurological Disorder: No - HEENT Hx HEENT Problems: No - RENAL Hx Chronic Kidney Disease: No - ENDOCRINE/METABOLIC Hx Endocrine Disorders: No - HEMATOLOGICAL/ONCOLOGICAL Hx Blood Disorders: No - INTEGUMENTARY Hx Dermatological Problems: No - MUSCULOSKELETAL/RHEUMATOLOGICAL Hx Musculoskeletal Disorders: No Hx Falls: No - GENITOURINARY/GYNECOLOGICAL Hx Genitourinary Disorders: No - PSYCHIATRIC Hx Psychophysiologic Disorder: No Hx Substance Use: No - SURGICAL HISTORY Hx Surgeries: Yes Hx Section: Yes (x3) - ANESTHESIA Hx Anesthesia: Yes Hx Anesthesia Reactions: No Hx Malignant Hyperthermia: No Has any member of the family had a problem w/ anesthesia?: No Meds Allergies/Adverse Reactions: Allergies Allergy/AdvReac Type Severity Reaction Status Date / Time No Known Allergies Allergy Verified 12/22/18 01:38 Physical Exam - Head Exam Head Exam: NORMAL INSPECTION - Eye Exam Eye Exam: Normal appearance - ENT Exam ENT Exam: Mucous Membranes Moist - Respiratory Exam Respiratory Exam: Clear to Auscultation Bilateral - GI/Abdominal Exam GI & Abdominal Exam: Normal Bowel Sounds - Neurological Exam Neurological exam: CN II-XII Intact, Oriented x3 - Psychiatric Exam Psychiatric exam: Anxious Results - Vital Signs Recent Vital Signs: Last Vital Signs Temp 98.6 F 01/01/19 04:13 Pulse 72 01/01/19 04:13 Resp 18 01/01/19 04:13 BP 126/80 01/01/19 04:13 Pulse Ox 98 01/01/19 04:13 - Labs Result Diagrams: 12/30/18 10:40 12/30/18 10:40 Assessment & Plan (1) fever Status: Acute (2) Mastitis associated with childbirth, delivered Status: Acute - Assessment and Plan (Free Text) Plan: Patient was started on IV antibiotics ID consult blood C and S pain meds advised to continue breast pump.
--- NOTE | 2019-01-01 17:08 | CP.PCM.PN ---
Subjective - Date & Time of Evaluation Date of Evaluation: 01/01/19 Time of Evaluation: 07:00 - Subjective Subjective: 33 y/o female presents to the ED complaining of fever She had a 1 week ago, was fine until developed fever has severe right mastitis IV Ancef for now await cultures if fever persists [place] Rodriguez Objective - Vital Signs/Intake and Output Vital Signs (last 24 hours): Temp Pulse Resp BP Pulse Ox 100.4 F H 101 H 18 147/98 H 100 01/01/19 16:43 01/01/19 15:54 01/01/19 15:54 01/01/19 15:54 01/01/19 15:54 - Medications Medications: Current Medications Acetaminophen (Tylenol 325mg Tab) 650 mg PO Q4 PRN PRN Reason: Fever >100.4 F Last Admin: 01/01/19 16:43 Dose: 650 mg Cefazolin Sodium 2 gm/ Sodium (Chloride) 100 mls @ 100 mls/hr IVPB Q8 PANCHITO; Protocol Last Admin: 01/01/19 10:02 Dose: 100 mls/hr Ibuprofen (Motrin Tab) 400 mg PO Q6 PRN PRN Reason: Pain, Mild (1-3) - Labs Labs: 12/30/18 10:40 12/30/18 10:40 PT 12.3 Seconds (9.8-13.1) 12/30/18 10:40 INR 1.1 12/30/18 10:40 APTT 28.6 Seconds (25.6-37.1) 12/30/18 10:40 - Constitutional Appears: Non-toxic, No Acute Distress, Chronically Ill - Head Exam Head Exam: ATRAUMATIC, NORMAL INSPECTION, NORMOCEPHALIC - Eye Exam Eye Exam: EOMI, Normal appearance, PERRL Pupil Exam: NORMAL ACCOMODATION, PERRL - ENT Exam ENT Exam: Mucous Membranes Moist, Normal Exam - Neck Exam Neck Exam: Full ROM, Normal Inspection. absent: Lymphadenopathy - Respiratory Exam Respiratory Exam: Clear to Ausculation Bilateral, NORMAL BREATHING PATTERN - Cardiovascular Exam Cardiovascular Exam: REGULAR RHYTHM, +S1, +S2. absent: Murmur - GI/Abdominal Exam GI & Abdominal Exam: Soft, Normal Bowel Sounds. absent: Tenderness - Rectal Exam Rectal Exam: Deferred - Exam Exam: NORMAL INSPECTION - Extremities Exam Extremities Exam: Full ROM, Normal Capillary Refill, Normal Inspection. absent: Joint Swelling, Pedal Edema - Back Exam Back Exam: NORMAL INSPECTION - Neurological Exam Neurological Exam: Alert, Awake, CN II-XII Intact, Normal Gait, Oriented x3 - Psychiatric Exam Psychiatric exam: Normal Affect, Normal Mood - Skin Skin Exam: Dry, Intact, Normal Color, Warm Assessment and Plan (1) Mastitis associated with childbirth, delivered Status: Acute (2) fever Status: Acute (3) Sepsis Status: Acute - Assessment and Plan (Free Text) Assessment: if fever persists add Jennifer
[2019-01-02] MEDS: ceFAZolin 2 GM in Sodium Chloride 0.9% 100 ML IVPB SCH ×3 (00:28→17:46)
--- NOTE | 2019-01-02 01:38 | CP.PCM.PN ---
Subjective - Date & Time of Evaluation Date of Evaluation: 01/01/19 Time of Evaluation: 10:00 - Subjective Subjective: Pt seen and assessed at bedside, still experiencing fevers. At this time, repeat blood cultures are pending. Infectious disease is on consult and the pt is currently receiving Ancef. Review of Systems: Reviewed and no additional remarkable complaints except occasional right breast pain. Objective Appears: Non-toxic, No Acute Distress. Head Exam: Normocephalic. Eye Exam: Normal eye inspection, EOMI, PERRLA. Respiratory Exam: NORMAL BREATHING PATTERN, breath sounds clear. Cardiovascular Exam: +S1, +S2. RRR. GI & Abdominal Exam: Round, soft, non-tender. Neurological Exam: Alert, Awake, Oriented x3. Psychiatric exam: Calm and cooperative. Assessment/Impression/Plan: 1.) Mastitis, fever -Currently receiving Ancef; pending repeat blood cultures. -Infectious disease consult input appreciated. -Ibuprofen for pain. -Fever noted; Tylenol PRN. -Continue current treatment. Objective - Vital Signs/Intake and Output Vital Signs (last 24 hours): Temp Pulse Resp BP Pulse Ox 99.8 F H 87 20 107/69 98 01/01/19 20:29 01/01/19 20:29 01/01/19 20:29 01/01/19 20:29 01/01/19 20:29 - Medications Medications: Current Medications Acetaminophen (Tylenol 325mg Tab) 650 mg PO Q4 PRN PRN Reason: Fever >100.4 F Last Admin: 01/01/19 16:43 Dose: 650 mg Cefazolin Sodium 2 gm/ Sodium (Chloride) 100 mls @ 100 mls/hr IVPB Q8 PANCHITO; Protocol Last Admin: 01/02/19 00:28 Dose: 100 mls/hr Ibuprofen (Motrin Tab) 400 mg PO Q6 PRN PRN Reason: Pain, Mild (1-3) - Labs Labs: 12/30/18 10:40 12/30/18 10:40 PT 12.3 Seconds (9.8-13.1) 12/30/18 10:40 INR 1.1 12/30/18 10:40 APTT 28.6 Seconds (25.6-37.1) 12/30/18 10:40 Assessment and Plan (1) Mastitis associated with childbirth, delivered Status: Acute (2) fever Status: Acute
[2019-01-02 06:30] LABS: BASO % 1.2 % (0.0-2.0); EOS % 0.6 % (0.0-4.0); HEMOGLOBIN 9.4 g/dL (12.0-16.0); LYMPH # 0.8 K/uL (1.0-4.3); LYMPH % 25.3 % (20.0-40.0); MEAN CELL VOLUME 64.3 fl (81.0-99.0); MEAN CORPUSCULAR HEMOGLOBIN 19.9 pg (27.0-31.0); MEAN PLATELET VOLUME 9.2 fl (7.2-11.7); MONO # 0.5 K/uL (0.0-0.8); MONO % 16.7 % (0.0-10.0); NEUT # 1.7 K/uL (1.8-7.0); NEUT % 56.2 % (50.0-75.0); NRBC % 0.3 % (0.0-0.0); RBC 4.71 Mil/uL (3.80-5.20); RED CELL DISTRIBUTION WIDTH 20.5 % (11.5-14.5)
[2019-01-02 07:34] LABS: ALB/GLOB RATIO 1.1 (1.0-2.1); ALBUMIN 3.5 g/dL (3.5-5.0); ALT/SGPT 25 U/L (9-52); AST/SGOT 30 U/L (14-36); BLOOD UREA NITROGEN 11 mg/dl (7-17); CALCIUM 8.5 mg/dL (8.4-10.2); GFR NON-AFRICAN AMERICAN > 60
[2019-01-02] MEDS ORDERED: Potassium Chloride 20 mEq ER Tab PO ONE (08:41)
--- NOTE | 2019-01-02 14:59 | US ---
Date of service: 01/02/2019 HISTORY: [age] year old female status post post for 10 days breast feeding with right Frances areolar pain well pumping milk. TECHNIQUE: Real-time scanning right breast(s) performed including each quadrant, each retroareolar are and each axilla. Color Doppler was applied as needed. FINDINGS: RIGHT BREAST: There are multiple anechoic and are minimally hypoechoic thin wall structures along with dilated ducts present in the retroareolar location. There is some low level echoes some of the ducts as well. Findings can be seen with . Cystic dilatation of the ducts. No markedly heterogeneous or thick walled abscess seen. No axillary lymphadenopathy identified. IMPRESSION: Findings compatible with marked ductal ectasia is some debris within the dilated ducts in this patient who is lactating possible. In the area of ductal dictation there multiple beaded and possibly separate the cystic appearing structures too numerous to count compatible with small atelectasis heels and/or minimally complicated cysts. Findings are relating to for have some milk debris within these dilated ducts the which have are likely beaded along with some small collective seals is compatible with this appearance. No abscess appreciated. Continued close follow-up recommended. No axillary lymphadenopathy seen. BIRADS: BIRADS 2 Benign finding Recommendation: Clinical follow-up recommended.
--- NOTE | 2019-01-02 16:23 | CP.PCM.PN ---
Subjective - Date & Time of Evaluation Date of Evaluation: 01/02/19 Time of Evaluation: 09:00 - Subjective Subjective: t max lower Objective - Vital Signs/Intake and Output Vital Signs (last 24 hours): Temp Pulse Resp BP Pulse Ox 99.1 F 84 20 115/76 97 01/02/19 16:05 01/02/19 16:05 01/02/19 16:05 01/02/19 16:05 01/02/19 16:05 - Medications Medications: Current Medications Acetaminophen (Tylenol 325mg Tab) 650 mg PO Q4 PRN PRN Reason: Fever >100.4 F Last Admin: 01/02/19 03:06 Dose: 650 mg Cefazolin Sodium 2 gm/ Sodium (Chloride) 100 mls @ 100 mls/hr IVPB Q8 PANCHITO; Protocol Last Admin: 01/02/19 09:52 Dose: 100 mls/hr Vancomycin HCl 1 gm/ Sodium (Chloride) 250 mls @ 166.667 mls/hr IVPB Q12 PANCHITO; Protocol Last Admin: 01/02/19 12:00 Dose: 166.667 mls/hr Ibuprofen (Motrin Tab) 400 mg PO Q6 PRN PRN Reason: Pain, Mild (1-3) - Labs Labs: 01/02/19 05:05 01/02/19 05:05 PT 12.3 Seconds (9.8-13.1) 12/30/18 10:40 INR 1.1 12/30/18 10:40 APTT 28.6 Seconds (25.6-37.1) 12/30/18 10:40 - Constitutional Appears: Non-toxic, Chronically Ill - Head Exam Head Exam: ATRAUMATIC, NORMAL INSPECTION, NORMOCEPHALIC - Eye Exam Eye Exam: EOMI, Normal appearance, PERRL Pupil Exam: NORMAL ACCOMODATION, PERRL - ENT Exam ENT Exam: Mucous Membranes Moist, Normal Exam - Neck Exam Neck Exam: Full ROM, Normal Inspection. absent: Lymphadenopathy - Respiratory Exam Respiratory Exam: Clear to Ausculation Bilateral, NORMAL BREATHING PATTERN - Cardiovascular Exam Cardiovascular Exam: REGULAR RHYTHM, +S1, +S2. absent: Murmur - GI/Abdominal Exam GI & Abdominal Exam: Soft, Normal Bowel Sounds. absent: Tenderness - Rectal Exam Rectal Exam: Deferred - Extremities Exam Extremities Exam: Full ROM, Normal Capillary Refill, Normal Inspection. absent: Joint Swelling, Pedal Edema - Back Exam Back Exam: NORMAL INSPECTION - Neurological Exam Neurological Exam: Alert, Awake, CN II-XII Intact, Normal Gait, Oriented x3 - Psychiatric Exam Psychiatric exam: Normal Affect, Normal Mood - Skin Skin Exam: Dry, Intact, Normal Color, Warm Assessment and Plan (1) Mastitis associated with childbirth, delivered Status: Acute (2) fever Status: Acute (3) Sepsis Status: Acute - Assessment and Plan (Free Text) Assessment: cont iv rx as ordered
--- NOTE | 2019-01-02 18:37 | CP.PCM.PN ---
Objective - Vital Signs/Intake and Output Vital Signs (last 24 hours): Temp Pulse Resp BP Pulse Ox 99.1 F 84 20 115/76 97 01/02/19 16:05 01/02/19 16:05 01/02/19 16:05 01/02/19 16:05 01/02/19 16:05 - Medications Medications: Current Medications Acetaminophen (Tylenol 325mg Tab) 650 mg PO Q4 PRN PRN Reason: Fever >100.4 F Last Admin: 01/02/19 03:06 Dose: 650 mg Cefazolin Sodium 2 gm/ Sodium (Chloride) 100 mls @ 100 mls/hr IVPB Q8 PANCHITO; Protocol Last Admin: 01/02/19 17:46 Dose: 100 mls/hr Vancomycin HCl 1 gm/ Sodium (Chloride) 250 mls @ 166.667 mls/hr IVPB Q12 PANCHITO; Protocol Last Admin: 01/02/19 12:00 Dose: 166.667 mls/hr Ibuprofen (Motrin Tab) 400 mg PO Q6 PRN PRN Reason: Pain, Mild (1-3) - Labs Labs: 01/02/19 05:05 01/02/19 05:05 PT 12.3 Seconds (9.8-13.1) 12/30/18 10:40 INR 1.1 12/30/18 10:40 APTT 28.6 Seconds (25.6-37.1) 12/30/18 10:40
[2019-01-02 19:48] VITALS: RESP 18
[2019-01-03] MEDS: ceFAZolin 2 GM in Sodium Chloride 0.9% 100 ML IVPB SCH ×2 (01:26→09:50)
[2019-01-03 06:49] LABS: BLOOD UREA NITROGEN 15 mg/dl (7-17); CALCIUM 8.3 mg/dL (8.4-10.2); GFR NON-AFRICAN AMERICAN > 60
[2019-01-03 08:13] VITALS: TEMP 98.2
[2019-01-03 12:09] VITALS: BP 114/77; PULSE 73; O2SAT 98
--- NOTE | 2019-01-03 12:36 | CP.PCM.PN ---
Subjective - Date & Time of Evaluation Date of Evaluation: 01/03/19 Time of Evaluation: 07:00 - Subjective Subjective: less pain no fever Objective - Vital Signs/Intake and Output Vital Signs (last 24 hours): Temp Pulse Resp BP Pulse Ox 98.2 F 73 18 114/77 98 01/03/19 12:00 01/03/19 12:00 01/03/19 12:00 01/03/19 12:00 01/03/19 12:00 - Medications Medications: Current Medications Acetaminophen (Tylenol 325mg Tab) 650 mg PO Q4 PRN PRN Reason: Fever >100.4 F Last Admin: 01/02/19 03:06 Dose: 650 mg Cefazolin Sodium 2 gm/ Sodium (Chloride) 100 mls @ 100 mls/hr IVPB Q8 PANCHITO; Protocol Last Admin: 01/03/19 09:50 Dose: 100 mls/hr Vancomycin HCl 1 gm/ Sodium (Chloride) 250 mls @ 166.667 mls/hr IVPB Q12 PANCHITO; Protocol Last Admin: 01/03/19 09:46 Dose: 166.667 mls/hr Ibuprofen (Motrin Tab) 400 mg PO Q6 PRN PRN Reason: Pain, Mild (1-3) - Labs Labs: 01/02/19 05:05 01/03/19 05:30 PT 12.3 Seconds (9.8-13.1) 12/30/18 10:40 INR 1.1 12/30/18 10:40 APTT 28.6 Seconds (25.6-37.1) 12/30/18 10:40 - Constitutional Appears: Well, Non-toxic, No Acute Distress, Chronically Ill - Head Exam Head Exam: ATRAUMATIC, NORMAL INSPECTION, NORMOCEPHALIC - Eye Exam Eye Exam: EOMI, Normal appearance, PERRL Pupil Exam: NORMAL ACCOMODATION, PERRL - ENT Exam ENT Exam: Mucous Membranes Moist, Normal Exam - Neck Exam Neck Exam: Full ROM, Normal Inspection. absent: Lymphadenopathy - Respiratory Exam Respiratory Exam: Clear to Ausculation Bilateral, NORMAL BREATHING PATTERN - Cardiovascular Exam Cardiovascular Exam: REGULAR RHYTHM, +S1, +S2. absent: Murmur - GI/Abdominal Exam GI & Abdominal Exam: Soft, Normal Bowel Sounds. absent: Tenderness - Rectal Exam Rectal Exam: Deferred - Exam Exam: NORMAL INSPECTION - Extremities Exam Extremities Exam: Full ROM, Normal Capillary Refill, Normal Inspection. absent: Joint Swelling, Pedal Edema - Back Exam Back Exam: NORMAL INSPECTION - Neurological Exam Neurological Exam: Alert, Awake, CN II-XII Intact, Normal Gait, Oriented x3 - Psychiatric Exam Psychiatric exam: Normal Affect, Normal Mood - Skin Skin Exam: Dry, Intact, Normal Color, Warm Assessment and Plan (1) Mastitis associated with childbirth, delivered Status: Acute (2) fever Status: Acute (3) Sepsis Status: Acute - Assessment and Plan (Free Text) Assessment: cont rx suspect MRSA d/c on PO folllow up with PMD Sunday
--- NOTE | 2019-01-06 09:32 | CP.PCM.DIS ---
Provider - Provider Date of Admission: 12/30/18 17:11 Attending physician: Girish Valentin MD Consults: 12/30/18 17:20 [employer]W OPERATOR Consult Stat Comment: Consulting Provider: Sandrita Gonzalez Consulting Physician: Sandrita Gonzalez Reason for Consult: fever 12/30/18 20:26 Infectious Disease Consult Routine Comment: Consulting Provider: Tr Bosch Consulting Physician: Tr Bosch Reason for Consult: Fever Time Spent in preparation of Discharge (in minutes): 30 Diagnosis - Discharge Diagnosis (1) fever Status: Acute (2) Mastitis associated with childbirth, delivered Status: Acute Hospital Course - Lab Results Lab Results: Micro Results 12/30/18 10:30 Blood Blood Culture - Final NO GROWTH AFTER 5 DAYS 12/30/18 10:30 Blood Gram Stain - Final TEST NOT PERFORMED 12/30/18 10:45 Blood Blood Culture - Final NO GROWTH AFTER 5 DAYS 12/30/18 10:45 Blood Gram Stain - Final TEST NOT PERFORMED 12/30/18 17:43 Unknown - Vagina Gram Stain - Final TEST NOT PERFORMED 12/30/18 17:43 Unknown - Vagina Genital Culture - Final NORMAL VAGINAL CECE 12/30/18 10:45 Urine,Clean Catch Urine Culture - Final <10,000 CFU/ML. MULTIPLE SPECIES. PROBABLE CONTAMINATION. Most Recent Lab Values WBC 3.0 K/uL (4.8-10.8) L D 01/02/19 05:05 RBC 4.71 Mil/uL (3.80-5.20) 01/02/19 05:05 Hgb 9.4 g/dL (12.0-16.0) L 01/02/19 05:05 Hct 30.3 % (34.0-47.0) L 01/02/19 05:05 MCV 64.3 fl (81.0-99.0) L 01/02/19 05:05 MCH 19.9 pg (27.0-31.0) L 01/02/19 05:05 MCHC 31.0 g/dL (33.0-37.0) L 01/02/19 05:05 RDW 20.5 % (11.5-14.5) H 01/02/19 05:05 Plt Count 326 K/uL (130-400) 01/02/19 05:05 MPV 9.2 fl (7.2-11.7) 01/02/19 05:05 Neut % (Auto) 56.2 % (50.0-75.0) 01/02/19 05:05 Lymph % (Auto) 25.3 % (20.0-40.0) 01/02/19 05:05 [place] % (Auto) 16.7 % (0.0-10.0) H 01/02/19 05:05 Eos % (Auto) 0.6 % (0.0-4.0) 01/02/19 05:05 Baso % (Auto) 1.2 % (0.0-2.0) 01/02/19 05:05 Neut # (Auto) 1.7 K/uL (1.8-7.0) L 01/02/19 05:05 Lymph # (Auto) 0.8 K/uL (1.0-4.3) L 01/02/19 05:05 [place] # (Auto) 0.5 K/uL (0.0-0.8) 01/02/19 05:05 Eos # (Auto) 0.0 K/uL (0.0-0.7) 01/02/19 05:05 Baso # (Auto) 0.0 K/uL (0.0-0.2) 01/02/19 05:05 Neutrophils % (Manual) 91 % (42-75) H 12/30/18 10:40 Band Neutrophils % 5 % (0-2) H 12/30/18 10:40 Lymphocytes % (Manual) 2 % (20-50) L 12/30/18 10:40 Monocytes % (Manual) 2 % (0-10) 12/30/18 10:40 Platelet Estimate Normal (NORMAL) 12/30/18 10:40 Large Platelets Present 12/30/18 10:40 Giant Platelets Present 12/30/18 10:40 Hypochromasia (manual) Moderate 12/30/18 10:40 Anisocytosis (manual) Moderate 12/30/18 10:40 Microcytosis (manual) Moderate 12/30/18 10:40 Tear Drop Cells Slight 12/30/18 10:40 PT 12.3 Seconds (9.8-13.1) 12/30/18 10:40 INR 1.1 12/30/18 10:40 APTT 28.6 Seconds (25.6-37.1) 12/30/18 10:40 pO2 46 mm/Hg (30-55) 12/30/18 10:09 VBG pH 7.46 (7.32-7.43) H 12/30/18 10:09 VBG pCO2 32 mmHg (40-60) L 12/30/18 10:09 VBG HCO3 24.2 mmol/L 12/30/18 10:09 VBG Total CO2 23.8 mmol/L (22-28) 12/30/18 10:09 VBG O2 Sat (Calc) 87.0 % (40-65) H 12/30/18 10:09 VBG Base Excess -0.4 mmol/L (0.0-2.0) L 12/30/18 10:09 VBG Potassium 3.8 mmol/L (3.6-5.2) 12/30/18 10:09 Sodium 132.0 mmol/L (132-148) 12/30/18 10:09 Chloride 103.0 mmol/L (98-107) 12/30/18 10:09 Glucose 96 mg/dL (65-105) 12/30/18 10:09 Lactate 1.0 mmol/L (0.7-2.1) 12/30/18 10:09 FiO2 21.0 % 12/30/18 10:09 Sodium 138 mmol/l (132-148) 01/03/19 05:30 Potassium 3.6 MMOL/L (3.6-5.0) 01/03/19 05:30 Chloride 105 mmol/L (98-107) 01/03/19 05:30 Carbon Dioxide 25 mmol/L (22-30) 01/03/19 05:30 Anion Gap 12 (10-20) 01/03/19 05:30 BUN 15 mg/dl (7-17) 01/03/19 05:30 Creatinine 0.6 mg/dl (0.7-1.2) L 01/03/19 05:30 Est GFR ( Amer) > 60 01/03/19 05:30 Est GFR (Non-Af Amer) > 60 01/03/19 05:30 Random Glucose 89 mg/dL (65-105) 01/03/19 05:30 Calcium 8.3 mg/dL (8.4-10.2) L 01/03/19 05:30 Total Bilirubin 0.4 mg/dl (0.2-1.3) 01/02/19 05:05 AST 30 U/L (14-36) 01/02/19 05:05 ALT 25 U/L (9-52) 01/02/19 05:05 Alkaline Phosphatase 90 U/L (38-126) 01/02/19 05:05 Total Protein 6.8 G/DL (6.3-8.2) 01/02/19 05:05 Albumin 3.5 g/dL (3.5-5.0) 01/02/19 05:05 Globulin 3.3 gm/dL (2.2-3.9) 01/02/19 05:05 Albumin/Globulin Ratio 1.1 (1.0-2.1) 01/02/19 05:05 Procalcitonin < 0.05 NG/ML (0.19-0.49) L 01/01/19 20:45 Venous Blood Potassium 3.8 mmol/L (3.6-5.2) 12/30/18 10:09 Urine Color Yellow (YELLOW) 12/30/18 10:45 Urine Clarity Slighty-cloudy (Clear) 12/30/18 10:45 Urine pH 7.0 (5.0-8.0) 12/30/18 10:45 Ur Specific [place] 1.016 (1.003-1.030) 12/30/18 10:45 Urine Protein Negative mg/dL (NEGATIVE) 12/30/18 10:45 Urine Glucose (UA) Neg mg/dL (NEGATIVE) 12/30/18 10:45 Urine Ketones Negative mg/dL (NEGATIVE) 12/30/18 10:45 Urine Blood Moderate (NEGATIVE) 12/30/18 10:45 Urine Nitrate Negative (NEGATIVE) 12/30/18 10:45 Urine Bilirubin Negative (NEGATIVE) 12/30/18 10:45 Urine Urobilinogen 0.2-1.0 mg/dL (0.2-1.0) 12/30/18 10:45 Ur Leukocyte Esterase Neg [place]/uL (Negative) 12/30/18 10:45 Urine RBC (Auto) 2 /hpf (0-3) 12/30/18 10:45 Urine Microscopic WBC 1 /hpf (0-5) 12/30/18 10:45 Ur Squamous Epith Cells 3 /hpf (0-5) 12/30/18 10:45 Urine Bacteria Rare (<OCC) 12/30/18 10:45 Influenza Typ A,B (EIA) Negative for flu a/b (NEGATIVE) 12/30/18 10:40 - Hospital Course Hospital Course: This is a 33 y/o female admitted for fever , possible mastitis and sepsis. She presented with fever small amount of bands on CBC however WBC was normal. OB and ID were consulted. C and S of blood and urine were performed which were all unyielding. She was placed on IV antibiotics and switched to oral. In the meantime she was advised to continue breast pumping. She responded very well to pain meds. She remained stable and was discharged on po antibiotics and advised follow up with OB in 1 week. Discharge Exam - Head Exam Head Exam: ATRAUMATIC, NORMAL INSPECTION, NORMOCEPHALIC - Eye Exam Eye Exam: Normal appearance - Respiratory Exam Respiratory Exam: Clear to PA & Lateral - Cardiovascular Exam Cardiovascular Exam: REGULAR RHYTHM - GI/Abdominal Exam GI & Abdominal Exam: Normal Bowel Sounds - Neurological Exam Neurological exam: CN II-XII Intact - Psychiatric Exam Psychiatric exam: Normal Mood - Skin Skin Exam: Normal Color Discharge Plan - Discharge Medications Prescriptions: Lactobacillus Acidophilus [Acidophilus] 100 mg PO BID #14 capsule Clindamycin [Cleocin] 300 mg PO Q8 #21 cap - Follow Up Plan Condition: STABLE Disposition: HOME/ ROUTINE Instructions: Sepsis, Adult (DC), Fever, Adult (DC) Additional Instructions: follow up with primary MD in 1 week keep clinic follow up appt on 01/01/19 Referrals: Sandrita Gonzalez MD [Staff Provider] - Girish Valentin MD [Staff Provider] -
== END 2019-01-03 14:15 | disposition home or self-care (01) | DRG 561 ==
LOC: H.ER 09:15 → H.ERHOLD 17:11 → H.TEL 18:46
PROVIDERS: ADMIT Family Medicine; ATTEND Family Medicine
DX: O85 Puerperal sepsis (principal); O86.4 Pyrexia of unknown origin following delivery; O91.22 Nonpurulent mastitis associated with the puerperium; O90.89 Other complications of the puerperium, not elsewhere classified; O34.219 Maternal care for unspecified type scar from previous cesarean delivery; M79.604 Pain in right leg; M79.605 Pain in left leg; M54.9 Dorsalgia, unspecified